=== PATIENT | male | born 1995 | race Caucasian/White ===

== ENCOUNTER 2020-07-25 16:03 | Emergency (ER) | payer OTHER, SELFPAY ==
--- NOTE | 2020-07-25 16:08 | ED.UPPEXIN ---
HPI - Extremity Injury (Upper) General Chief Complaint: Extremity Injury, Upper Stated Complaint: Extremity Injury, Upper Time Seen by Provider: 07/25/20 16:25 Source: patient and RN notes reviewed Mode of arrival: ambulatory Limitations: no limitations History of Present Illness HPI narrative: 24-year-old male presents with concern for laceration to the fifth digit of the left hand reports he was laying maria m when he cut his hand. He denies any blunt trauma. Denies any decreased sensation, range of motion to the finger MD complaint: injury to: left and finger Other Extremity Injury: Left: fingers Related Data Home Medications Medication Instructions Recorded Confirmed insulin lispro [Humalog U-100 1 sliding scale dose SUBCUT 07/25/20 07/25/20 Insulin] USEASDIRECTD Allergies Allergy/AdvReac Type Severity Reaction Status Date / Time No Known Allergies Allergy Verified 07/25/20 16:23 Review of Systems Review of Systems: Narrative: CONSTITUTIONAL: Denies malaise, chills, sweats, or fever. SKIN: Reports laceration to the fifth digit of left hand MUSCULOSKELETAL: Denies musculoskeletal pain NEUROLOGIC: Denies numbness, weakness. All systems reviewed & are unremarkable except as noted in HPI and below PMFSH Comments At time of signature, agree with nursing past medical, surgical, social and family history. There is no relevant family history pertinent to the presenting complaint Exam Narrative: Exam Narrative: GENERAL: Well-appearing, well-nourished, and in no acute distress. HEAD: Normocephalic EYES: PERRLA, conjunctivae clear NECK: Supple. CHEST: Speaks in full sentences. No respiratory distress. HEART: Regular rate and rhythm. Normal and equal peripheral pulses. EXTREMITIES: Left hand and digits of hand have normal strength and sensation. 5/5 strength with digit flexion, extension. Range of motion normal. No clubbing, cyanosis, or edema noted. No tenderness. Normal digital cascade with flexion of fingers, median, ulnar and radial nerve intact. Normal sensation of each side of finger. Can perform 'okay' sign, 'cross over finger test of index and middle fingers' and 'thumbs up' sign. No scissoring. Normal thumb opposition. Good capillary refill and radial pulse. Distal capillary refill less than 3 seconds. SKIN: Warn, dry, intact, pink. U-shaped skin flap laceration noted to the lateral edge of the fifth digit of the left hand, no current bleeding NEURO: Alert and oriented x3. PSYCH: Normal mood and affect Course Course Emergency Course: Patient is aware of diagnosis, understands and agrees to treatment plan. Anticipatory guidance given. Patient agrees to follow-up as directed and is aware of reasons to seek care at the emergency department. Portions of this record may have been created with voice recognition software Vital Signs Vital signs: Vital Signs Temperature 97.5 F L 07/25/20 16:18 Pulse Rate 81 07/25/20 16:18 Respiratory Rate 18 07/25/20 16:18 Blood Pressure 139/80 07/25/20 16:18 Pulse Oximetry 99 07/25/20 16:18 Temperature 97.5 F L 07/25/20 16:26 Pulse Rate 81 07/25/20 16:26 Respiratory Rate 18 07/25/20 16:26 Blood Pressure 139/80 07/25/20 16:26 Pulse Oximetry 99 07/25/20 16:26 Reviewed. Procedures Laceration Laceration 1: Date: 07/25/20 Time: 16:36 Site: hand Side (If applicable): left Size (cm): 2 Description: flap Depth: simple, single layer Amount of anesthesia used (mL): 2 Pre-repair: wound explored and irrigated ====== Skin Level ====== Skin layer closed with: nylon and steri strips Size (cm): 5-0 Number of sutures: 4 Technique: simple, interrupted ====== Subcutaneous Layer ====== ====== Muscle Layer ====== ====== Tendon Layer ====== MDM - Extremity Injury (Upper) MDM Narrative Medical decision making narrative: Wound explored for foreign
[2020-07-25 16:18] VITALS: BP 139/80; PULSE 81; RESP 18; TEMP 36.4; O2SAT 99
[2020-07-25 16:26] VITALS: BP 139/80; PULSE 81; RESP 18; TEMP 36.4; O2SAT 99
[2020-07-25] MEDS: TETANUS,DIPHTHERIA,AC PERTUSSIS ADULT (0.5 ML) BOOSTRIX IM (16:29)
== END 2020-07-25 17:16 | disposition home or self-care (01) ==
PROVIDERS: Emergency Provider Nurse Practitioner; PCP Nurse Practitioner Family
DX: S61.217A Laceration without foreign body of left little finger without damage to nail, initial encounter (principal); W45.8XXA Other foreign body or object entering through skin, initial encounter; Z23 Encounter for immunization; E11.9 Type 2 diabetes mellitus without complications; Z96.41 Presence of insulin pump (external) (internal); Z79.4 Long term (current) use of insulin
CPT/HCPCS: 12001; 90471; 90715; 99213; A4565; G0463

== ENCOUNTER 2021-06-01 09:51 | Emergency (ER) | payer OTHER, SELFPAY ==
[2021-06-01 11:17] VITALS: BP 98/73; PULSE 99; RESP 14; TEMP 37.3; O2SAT 97
--- NOTE | 2021-06-01 11:49 | ED.URI ---
HPI - URI/Sore Throat General Chief Complaint: Upper Respiratory Infection Stated Complaint: sore throat ear pain Time Seen by Provider: 06/01/21 11:34 Source: patient and RN notes reviewed Mode of arrival: ambulatory Limitations: no limitations History of Present Illness HPI Narrative: Patient presents today complaining of 6-day history of sore throat, cough, congestion, bilateral ear pain. He has been trying Mucinex and NyQuil without relief. Symptoms seem to be worsening since onset. MD elicited complaint: sore throat Related Data Home Medications Medication Instructions Recorded Confirmed insulin lispro [Humalog U-100 1 sliding scale dose SUBCUT 07/25/20 07/25/20 Insulin] USEASDIRECTD insulin glargine [Lantus U-100 SUBCUT 06/01/21 Insulin] Allergies Allergy/AdvReac Type Severity Reaction Status Date / Time No Known Allergies Allergy Verified 07/25/20 16:23 Review of Systems Review of Systems: CONSTITUTIONAL: Denies body aches, fever, chills, or sweats. EYES: Denies visual changes, redness, or discharge. ENT: Denies rhinorrhea,+ Congestion, sore throat, bilateral ear pain CARDIOVASCULAR: Denies chest pain, palpitations, or edema. RESPIRATORY: Denies dyspnea.+ Cough GASTROINTESTINAL: Denies abdominal pain, nausea, vomiting, or diarrhea. GENITOURINARY: Denies dysuria or hematuria. SKIN: Denies rash, itching, or wounds. MUSCULOSKELETAL: Denies back pain, joint pain, or myalgia. NEUROLOGIC: Denies headache, numbness, tingling, or weakness. PSYCH: Denies depression or anxiety. PMFSH Comments At time of signature, I have reviewed and agree with nursing past medical, surgical, social and family history unless otherwise noted. Please see nursing chart for further information. There is no relevant family history pertinent to the presenting complaint Exam Narrative: GENERAL: Well-appearing, well-nourished, and in no acute distress. HEAD: Normocephalic, atraumatic. EYES: EOMI. No redness or drainage. Conjunctivae normal. ENT: Mucous membranes pink and moist. Nares clear. No rhinorrhea. TMs normal bilaterally. Throat mildly erythematous without edema or exudate. Uvula midline. NECK: Normal AROM. Supple. No lymphadenopathy. CHEST: No respiratory distress. Clear to auscultation. HEART: Regular rate and rhythm. No murmur appreciated. Normal peripheral pulses. EXTREMITIES: Normal range of motion. No edema. SKIN: Warm, dry, no rash. Capillary refill normal. Normal skin turgor. NEURO: No focal deficits. Alert and oriented x3. Gait steady. PSYCH: Normal affect. No signs of depression or anxiety. Course Vital Signs Vital signs: Vital Signs Temperature 99.1 F 06/01/21 11:17 Pulse Rate 99 06/01/21 11:17 Respiratory Rate 14 06/01/21 11:17 Blood Pressure 98/73 L 06/01/21 11:17 Pulse Oximetry 97 06/01/21 11:17 Temperature 99.1 F 06/01/21 11:17 Pulse Rate 99 06/01/21 11:17 Respiratory Rate 14 06/01/21 11:17 Blood Pressure 98/73 L 06/01/21 11:17 Pulse Oximetry 97 06/01/21 11:17 Reviewed MDM - URI/Sore Throat Differential Diagnosis Differential diagnosis: Likely upper respiratory infection, otitis media, sinusitis, viral infection, influenza, pharyngitis and other (Strep throat, COVID-19) Lab Data Attestation: I reviewed the patient's lab results. Lab results narrative: Rapid COVID-19 negative Labs: Influenza A Screen Negative Reference Range: Negative Influenza B Screen Negative Reference Range: Negative Strep Screen Presumptive Negative *(Reference Range: Negative)* Critical Care Time Critical Care Time Critical Care Time: No Discharge Plan Discharge Clinical Impression: Strep throat Patient Disposition: Home, Self-Care Condition: Stable Instructions: Antibiotic Form, Strep T
== END 2021-06-01 12:09 | disposition home or self-care (01) ==
PROVIDERS: Emergency Provider Nurse Practitioner; PCP Nurse Practitioner Family
DX: J02.0 Streptococcal pharyngitis (principal); E11.9 Type 2 diabetes mellitus without complications; Z96.41 Presence of insulin pump (external) (internal)
CPT/HCPCS: 87804; 87880; 99213; G0463

== ENCOUNTER 2021-10-03 11:09 | Outpatient (CLI) | payer OTHER, SELFPAY ==
[2021-10-03 18:18] LABS: Hematocrit 50.1 % (42.0-52.0); Hemoglobin 17.7 g/dL (14.0-18.0); Mean Corpuscular HGB Conc 35.3 g/dl (32-36); Mean Corpuscular Hemoglobin 28.3 pg (26-34); Mean Corpuscular Volume 80.2 fl (80-100); Mean Platelet Volume 10.6 fl (7.4-10.4); Platelet Count Result 250 k/mm3 (150-375); Red Blood Count 6.25 M/mm3 (4.6-6.20); Red Cell Distribution Width 12.8 % (11.5-14.5); White Blood Count 7.6 K/mm3 (4.5-10.0)
[2021-10-03 18:39] LABS: Alanine Aminotransferase 36 U/L (4-50); Albumin Level 4.6 g/dL (3.5-5.1); Alkaline Phosphatase 98 U/L (38-126); Anion Gap 10 mmol/L (8-16); Aspartate Amino Transferase 34 U/L (17-59); Bilirubin,Total 4.6 mg/dL (0.2-1.3); Blood Urea Nitrogen 16 mg/dL (9-20); Calcium 9.5 mg/dL (8.4-10.2); Carbon Dioxide 30 mmol/L (22-30); Chloride 101 mmol/L (98-107); Cholesterol 173 mg/dL (0-200); Estimated Glomerular Filt Rate > 60; Glucose 142 mg/dL (65-110); HDL Direct 49 mg/dL; Potassium 4.3 mmol/L (3.4-5.0); Sodium 141 mmol/L (137-145); Triglycerides 69 mg/dL (<150)
[2021-10-03 18:49] LABS: LDL Cholesterol Direct 100 mg/dL
[2021-10-03 20:01] LABS: Hemoglobin A1C 9.3 % (<5.7)
== END 2021-10-03 11:10 | disposition home or self-care (01) ==
PROVIDERS: PCP Family Medicine; Visit Provider Family Medicine
DX: E10.9 Type 1 diabetes mellitus without complications (principal); R17 Unspecified jaundice; F41.9 Anxiety disorder, unspecified; Z00.00 Encounter for general adult medical examination without abnormal findings
CPT/HCPCS: 36415; 80053; 80061; 83036; 84443; 85027

== ENCOUNTER 2022-03-05 18:09 | Emergency (ER) | payer OTHER, SELFPAY ==
[2022-03-05] VITALS (7 sets, daily range): BP systolic 121–132; BP diastolic 75–90; PULSE 68–89; RESP 19–22; TEMP 36.8; O2SAT 99–100
--- NOTE | 2022-03-05 18:15 | ECG_ITS ---
Measurements Intervals [place] Rate: 72 P: 9 IA: 119 QRS: 64 QRSD: 98 T: -7 QT: 340 QTc: 373 Interpretive Statements SINUS RHYTHM WITH SINUS ARRHYTHMIA WITH SHORT IA INTERVAL NONSPECIFIC T-WAVE ABNORMALITY BORDERLINE ECG NO PREVIOUS ECG AVAILABLE FOR COMPARISON Electronically Signed On 03-05-2022 18:32:38 CDT by Andrew Syed M.D.
--- NOTE | 2022-03-05 18:26 | ED.GENADULT ---
HPI - General Adult General Chief complaint: Environmental Exposure Stated complaint: heat exhaustion Time Seen by Provider: 03/05/22 18:16 History of Present Illness HPI narrative: Pt is a 26 y/o male, PMHx of IDDM, presents to ED via EMS with CC he began feeling generally weak, dizzy, with hand and feet cramping, shortly [employer]AFF [employer] OFFICE BASED ONLY after working outdoors in the heat for several hours. He was drinking water and Mountain Dew and when he returned inside after completing his work, he began feeling unwell; as if his FSBS was dropping. He called for his spouse, who brought him glucose. Related Data Home Medications Medication Instructions Recorded Confirmed insulin lispro 100 unit/mL 1 sliding scale dose subcut 07/25/20 11/05/21 subcutaneous cartridge (Humalog USEASDIRECTD U-100 Insulin) insulin lispro 100 unit/mL subcut 03/05/22 subcutaneous pen Allergies Allergy/AdvReac Type Severity Reaction Status Date / Time No Known Allergies Allergy Unverified 03/05/22 18:08 Review of Systems Review of Systems: Refer to HPI Musculoskeletal: Comments: refer to HPI [facility] Family History Family History (Updated 10/03/21 @ 10:42 by Doreen Aaron MA) Mother Hypertension Grandparent Diabetes mellitus Hypertension Social History Social History (Updated 10/03/21 @ 10:41 by Doreen Aaron MA) Smoking status: Unknown if ever smoked Alcohol intake: never Substance use: never Substance use type: does not use Gender identity (if verbalized by the patient): Male Sexual Orientation (if Verbalized by the Patient): Straight or Heterosexual Agree to blood products: Yes Exam Const: General: cooperative, healthy appearing, comfortable, no acute distress, well developed and alert Orientation/consciousness: patient oriented x3 Limitations: no limitations HENMT: Head: normal to inspection and No palpable skull fracture present Ears: hearing grossly normal bilaterally, external ears normal and TM's normal bilaterally Face and sinus: normal facial exam Eyes: General: appearance normal, both eyes and all related structures Periorbital: periorbital findings normal Pupils: Equal, round and reactive pupils present Neck: Neck: normal visual inspection Carotids: normal carotid upstroke Chest: Chest palpation & inspection: normal inspection of the chest Resp: Effort & Inspection: normal respiratory effort and able to speak in complete sentences Auscultation: clear to auscultation bilaterally Cardio: Palpation: normal PMI Rate: regular rate Rhythm: regular rhythm Heart sounds: S1 normal heart sound present and S2 normal heart sound present Peripheral pulses: Peripheral pulses 2+ throughout GI: GI Palp: No abdominal tenderness, No Abdominal aortic bruit present, Yes Soft to palpation, No Firmness to palpation present (GI), No Tenderness to palpation present (GI), No Guarding due to palpation present (GI), No Rigid due to palpation, No No hepatosplenomegaly present, No Hepatosplenomegaly present, No Hepatomegaly present, No Splenomegaly present, No Hernia present, No Palpable mass present, No Pulsatile mass present, No Aortic enlargement present, No Ascites present, No Carnett's sign positive, No Rebound tenderness present, No Bladder palpation abnormal and No Other GI palpation findings present Back/Spine/Pelvis: Back: no CVA tenderness Skin: General skin exam: normal color Other: tanned skin, obvious sun exposure, no blistering or rashes noted Neuro: General: oriented to person, oriented to place, oriented to time and patient oriented x3 Cranial nerves: Yes CN's II-XII intact bilaterally and Yes Bilaterally intact EOM present Speech: normal speech Gait exam (Neuro): Normal gait present Motor exam (neuro): 5/5 motor strength present throughout Extrem: General: normal to inspection, full ROM and capillary refill normal Other: pt has no TTP over any muscle groups of the upper, lower extremities or back. P
[2022-03-05 18:32] LABS: Basophils Absolute Auto 0.1 K/mm3 (0.0-0.1); Basophils Percent Auto 0.7 % (0.2-1.2); Eosinophils Absolute Auto 0.1 K/mm3 (0-0.3); Eosinophils Percent Auto 0.6 % (0-4.4); Hematocrit 49.5 % (42.0-52.0); Hemoglobin 17.8 g/dL (14.0-18.0); Immature Granulocyte Absolute 0.08 K/mm3 (0.00-0.031); Immature Granulocyte Percent A 0.9 % (0-0.5); Lymphocytes Absolute Auto 2.94 K/mm3 (0.9-3.2); Lymphocytes Percent Auto 32.9 % (18.3-44.2); Mean Corpuscular Hemoglobin 27.8 pg (26-34); Mean Corpuscular Volume 77.3 fl (80-100); Mean Platelet Volume 9.9 fl (7.4-10.4); Monocytes Absolute Auto 0.7 K/mm3 (0.1-0.6); Monocytes Percent Auto 7.3 % (2.6-8.5); Neutrophils Absolute Auto 5.2 K/mm3 (1.3-6.7); Neutrophils Percent Auto 57.6 % (45.5-73.1); Platelet Count Result 271 k/mm3 (150-375); Red Cell Distribution Width 12.7 % (11.5-14.5); White Blood Count 8.9 K/mm3 (4.5-10.0)
[2022-03-05] MEDS: LACTATED RINGERS 1,000 ML 999 ML IV CONT (18:32)
[2022-03-05 18:42] LABS: Alanine Aminotransferase 43 U/L (6-50); Albumin Level 5.4 g/dL (3.5-5.1); Alkaline Phosphatase 102 U/L (38-126); Anion Gap 12 mmol/L (8-16); Aspartate Amino Transferase 40 U/L (17-59); Bilirubin,Total 4.5 mg/dL (0.2-1.3); Blood Urea Nitrogen 18 mg/dL (9-20); Calcium 10.2 mg/dL (8.4-10.2); Carbon Dioxide 32 mmol/L (22-30); Chloride 94 mmol/L (98-107); Estimated CRCL calculation 61 ml/min; Estimated Glomerular Filt Rate > 60; Glucose 208 mg/dL (65-110); Potassium 3.7 mmol/L (3.4-5.0); Sodium 138 mmol/L (137-145)
--- NOTE | 2022-03-05 19:58 | PC.NURSE ---
Called lab to add on Ck, Ckmb, trop 1, and tsh reflex.
[2022-03-05 20:15] LABS: Creatine Kinase 193 U/L (55-170)
[2022-03-05 20:29] LABS: Creatine Kinase MB 3.5 ng/mL (0.0-2.37); Troponin I < 0.012 ng/mL (0.000-0.034)
[2022-03-05] MEDS: SODIUM CHLORIDE 0.9% IV 1,000 ML 999 ML IV CONT (20:30)
--- NOTE | 2022-03-05 20:43 | PC.NURSE ---
Initial L of NS started by EMS in route infused w/ 0 volume left in container. Pt has had full NS liter and full L of LR. Benji Christina NP made aware and doc in SEP.
[2022-03-05 21:38] LABS: Free T4 Free Thyroxine Reflex 1.17 ng/dL (0.78-2.19)
== END 2022-03-05 21:26 | disposition home or self-care (01) ==
PROVIDERS: Emergency Medicine; Emergency Provider Nurse Practitioner Family; PCP Family Medicine
DX: E86.0 Dehydration (principal); E11.9 Type 2 diabetes mellitus without complications; Z79.4 Long term (current) use of insulin; X30.XXXA Exposure to excessive natural heat, initial encounter
CPT/HCPCS: 36415; 80053; 82550; 82553; 84439; 84443; 84480; 84484; 85025; 93005; 96360; 96361; 99284; J7030; J7120

== ENCOUNTER 2023-04-19 15:15 | Emergency (ER) | payer OTHER, SELFPAY ==
[2023-04-19 15:31] VITALS: BP 143/67; PULSE 73; RESP 18; TEMP 36.6; O2SAT 98
--- NOTE | 2023-04-19 16:00 | ED.GENADULT ---
HPI - General Adult General Chief complaint: Unspecified Stated complaint: insulin prescription Source: patient Mode of arrival: ambulatory Limitations: no limitations History of Present Illness HPI narrative: Patient presents requesting a refill on his Humalog. He has an insulin pump for diabetes and dropped his last vial earlier today. He still has Humalog remaining in the pump but was concerned he would run out of insulin before the end of the weekend. His primary care provider does not have a method of contact over the weekend. His home BS have been running 70-120. Prescription is for 10ml vial with max dose of 45 units per day. Related Data Home Medications Medication Instructions Recorded Confirmed insulin lispro 100 unit/mL 1 sliding scale dose subcut 07/25/20 04/19/23 subcutaneous cartridge (Humalog USEASDIRECTD U-100 Insulin) Allergies Allergy/AdvReac Type Severity Reaction Status Date / Time No Known Allergies Allergy Verified 04/16/23 14:12 Review of Systems Review of Systems: CONSTITUTIONAL: Denies fever, chills, or sweats. EYES: Denies visual changes, redness, or discharge. ENT: Denies rhinorrhea, congestion, sore throat, or otalgia. CARDIOVASCULAR: Denies chest pain, palpitations, or edema. RESPIRATORY: Denies cough or dyspnea. GASTROINTESTINAL: Denies abdominal pain, nausea, vomiting, or diarrhea. GENITOURINARY: Denies dysuria or hematuria. SKIN: Denies rash or itching. MUSCULOSKELETAL: Denies back pain, joint pain, or myalgia. NEUROLOGIC: Denies headache, numbness, dizziness, or weakness. PSYCHIATRIC: Denies anxiety or depression. [facility] Past Medical History Medical History Diabetes Surgical History Surgical History No pertinent past surgical history Family History Family History Mother Hypertension Grandparent Diabetes mellitus Hypertension Social History Social History Smoking status: Never smoker Alcohol intake: never Substance use: never Substance use type: does not use Living arrangements: with family Gender identity (if verbalized by the patient): Male Sexual Orientation (if Verbalized by the Patient): Straight or Heterosexual Agree to blood products: Yes Exam Narrative: GENERAL: Well-appearing, well-nourished, and in no acute distress. HEAD: Normocephalic, atraumatic. EYES: PERRLA and EOMI. ENT: Nares clear, no rhinorrhea or epistaxis. Mucous membranes moist. Oropharynx without tonsillar hypertrophy exudate or other lesions. Bilateral TMs pearly jerez nonbulging NECK: Supple. No adenopathy or masses. No carotid bruits or JVD CHEST: Clear to auscultation. No respiratory distress. No wheezes rales or rhonchi HEART: Regular rate and rhythm. No murmur heard. Normal peripheral pulses. ABDOMEN: Soft, nontender, nondistended, normal active bowel sounds. EXTREMITIES: Normal range of motion. No edema. SKIN: Warm, dry, no rash. NEURO: No focal deficits. Alert and oriented x3. PSYCH: Normal mood and affect. Course Course Emergency Course: This is a 27-year-old male who presented requesting a refill on his Humalog for his insulin pump. Provided me with a box to show number of units per ml and total mil per vial. I contacted his filling pharmacy to ensure they have that particular product. Pharmacist to verify at time of customer pickup. Recommended continue to follow blood sugars closely. Follow up with primary next week. Go to the ER for hyperglycemia. Pt in agreement with plan of care. Level of Care: Express Care Visit Vital Signs Vital signs: Vital Signs Temperature 36.6 C 04/19/23 15:31 Pulse Rate 73 04/19/23 15:31 Respiratory Rate 18 04/19/23 15:31 Blood Pressure 143/67 H 04/19/23
== END 2023-04-19 15:57 | disposition home or self-care (01) ==
PROVIDERS: Emergency Provider Nurse Practitioner; PCP Family Medicine
DX: E11.8 Type 2 diabetes mellitus with unspecified complications (principal); Z79.4 Long term (current) use of insulin
CPT/HCPCS: 99211; G0463

== ENCOUNTER 2023-04-21 08:11 | Outpatient (CLI) | payer OTHER, SELFPAY ==
[2023-04-21 09:43] LABS: Alanine Aminotransferase 37 U/L (6-50); Albumin Level 4.2 g/dL (3.5-5.1); Alkaline Phosphatase 81 U/L (38-126); Anion Gap 4 mmol/L (8-16); Aspartate Amino Transferase 29 U/L (17-59); Bilirubin,Total 3.2 mg/dL (0.2-1.3); Blood Urea Nitrogen 17 mg/dL (9-20); Calcium 8.9 mg/dL (8.4-10.2); Carbon Dioxide 31 mmol/L (22-30); Chloride 102 mmol/L (98-107); Cholesterol 200 mg/dL (0-200); Estimated Glomerular Filt Rate > 60; Glucose 171 mg/dL (65-110); HDL Direct 40 mg/dL; Potassium 4.1 mmol/L (3.4-5.0); Sodium 137 mmol/L (137-145); Triglycerides 79 mg/dL (<150)
[2023-04-21 09:54] LABS: LDL Cholesterol Direct 124 mg/dL
[2023-04-21 10:12] LABS: Free T4 Free Thyroxine 0.96 ng/mL (0.78-2.19)
== END 2023-04-21 08:12 | disposition home or self-care (01) ==
LOC: ANHLAB 08:12
PROVIDERS: PCP Family Medicine; Visit Provider Internal Medicine
DX: E10.9 Type 1 diabetes mellitus without complications (principal)
CPT/HCPCS: 36415; 80053; 80061; 82043; 84439; 84443

== ENCOUNTER 2023-04-21 14:43 | Outpatient (CLI) | payer OTHER, SELFPAY ==
[2023-04-21 20:43] LABS: Creatinine Urine 19.3 mg/dL
[2023-04-21 20:52] LABS: Microalbumin Urine Random < 6.0 mg/L (0-16.7)
== END 2023-04-21 14:44 | disposition home or self-care (01) ==
LOC: ANHBWCLAB 14:45
PROVIDERS: PCP Family Medicine; Visit Provider Internal Medicine
DX: Z04.89 Encounter for examination and observation for other specified reasons (principal)
CPT/HCPCS: 82043

== ENCOUNTER 2023-09-16 13:18 | Outpatient (CLI) | payer OTHER, SELFPAY ==
--- NOTE | ~2023-09-16 | XR_ITS ---
EXAMINATION: XR chest 2V Exam Date/Time: 09/16/2023 13:19 PACKAGING LINE ATTENDANT HISTORY: R05.3 - Chronic cough Comparison: None. RESULT: Lines, tubes, and devices: None. Lungs and pleura: Mild diffuse reticular opacities and cuffing. Cardiomediastinal silhouette: Normal. Other: No acute osseous or upper abdominal finding. IMPRESSION: Pulmonary opacities may represent bronchiolitis, as can be seen with atypical infection, asthma, aspi ration, and small airways disease. Reviewed, dictated and finalized at location [facility]. AGING LINE ATTENDANT IMPRESSION: Pulmonary opacities may represent bronchiolitis, as can be seen with atypical i nfection, asthma, aspiration, and small airways disease.
== END 2023-09-16 13:19 | disposition home or self-care (01) ==
LOC: ANHBWCIMG 13:19
PROVIDERS: PCP Nurse Practitioner Adult Health; Visit Provider Nurse Practitioner Adult Health
DX: R91.8 Other nonspecific abnormal finding of lung field (principal); R05.3 Chronic cough
CPT/HCPCS: 71046

== ENCOUNTER 2023-09-19 13:52 | Outpatient (CLI) | payer OTHER, SELFPAY ==
--- NOTE | ~2023-09-19 | CT_ITS ---
CT Scan of the Chest without Contrast: Clinical Indication: Chronic cough Technique: Contiguous sections were acquired throughout the chest without intravenous contrast. Dose reduction technique was used on this scan by utilizing automated exposure control and iterative recon struction technique. The dose-length product (DLP) was 188.09 mGy-cm. Findings: There is no evidence of any significant mediastinal, hilar or axillary lymphadenopathy. The mediastin al soft tissues appear normal. There is no evidence of pleural or pericardial effusion. The lungs are clear. No pulmonary nodules or infiltrates are noted. Images through the upper abdomen reveal no abnormalities. Impression: No significant abnormalities seen. Reviewed, dictated and finalized at [facility]. IO CLINICIAN Impression: No significant abnormalities seen.
== END 2023-09-19 13:53 | disposition home or self-care (01) ==
LOC: ANHIMG 13:52
PROVIDERS: PCP Nurse Practitioner Adult Health; Visit Provider Nurse Practitioner Adult Health
DX: R93.89 Abnormal findings on diagnostic imaging of other specified body structures (principal); R05.3 Chronic cough; Z86.16 Personal history of COVID-19
CPT/HCPCS: 71250

== ENCOUNTER 2023-09-29 14:22 | Outpatient (CLI) | payer OTHER, SELFPAY ==
--- NOTE | 2023-09-29 17:19 | WPDPFTINT ---
PFT Procedure Performed PFT Procedure Performed Plethysmography (Lung Vol) Diffusing Cap (DLCO) Flow Vol Loop Spirometry w/o Bronchodil PFT Interpretation This is a pulmonary function test with spirometry, plethysmography and diffusing capacity. The test was performed and results interpreted in accordance with the 2019 and 2005 ATS/ERS Task Force guidelines respectively using the Global Lung Function Initiative-2012 reference equations. Patient demonstrated good effort and cooperation. Reproducibility criteria were met. The quality of the spirometry maneuver was Grade A. Findings: Spirometry: There is mid expiratory plateau referred to as a knee pattern in 2 of the 4 maneuvers. The contour the inspiratory flow tracing is truncated. The FVC is 2.72 L, 64% predicted. The FEV1 is 2.43 L, 68% predicted. FEV1: FVC ratio is 89%. Plethysmography: The total lung capacity is 3.49 L, 64% predicted. The functional residual capacity is 1.33 L, 53% predicted. The residual volume is 0.76 L, 63% predicted. Diffusing capacity: The diffusing capacity unadjusted for the hemoglobin and carboxyhemoglobin is 18.4, 56% predicted. The diffusing capacity adjusted for alveolar volume is 5.01, 90% predicted. Impression: There is a reproducible knee pattern in the expiratory flow tracing which can be a normal variant or pathologic and has been attributed to a choke point section of the bronchial tree. The normal variant is more common in younger female patients, decreases with age and is more pronounced in the post bronchodilator efforts. The pattern has also been described with kyphosis, kyphoscoliosis, central obstructing mass, and post lung transplantation. Clinical correlation is recommended. Otherwise, there is a moderate restrictive ventilatory abnormality. The spirometry is normal without evidence of an obstructive abnormality. The diffusing capacity unadjusted for hemoglobin and carboxyhemoglobin is moderately decreased and normalizes when adjusted for alveolar volume. There are no prior studies for comparison
== END 2023-09-29 14:23 | disposition home or self-care (01) ==
PROVIDERS: PCP Nurse Practitioner Adult Health; Visit Provider Nurse Practitioner Adult Health
DX: R93.89 Abnormal findings on diagnostic imaging of other specified body structures (principal); R05.3 Chronic cough; Z86.16 Personal history of COVID-19
CPT/HCPCS: 94375; 94726; 94729

== ENCOUNTER 2023-12-17 09:58 | Outpatient (CLI) | payer OTHER, SELFPAY ==
[2023-12-17 10:38] LABS: Basophils Percent Auto 0.4 % (0.2-1.2); Eosinophils Absolute Auto 0.1 K/mm3 (0-0.3); Eosinophils Percent Auto 0.7 % (0-4.4); Hematocrit 46.2 % (42.0-52.0); Hemoglobin 16.4 g/dL (14.0-18.0); Immature Granulocyte Absolute 0.07 K/mm3 (0.00-0.031); Lymphocytes Absolute Auto 1.74 K/mm3 (0.9-3.2); Lymphocytes Percent Auto 25.3 % (18.3-44.2); Mean Corpuscular HGB Conc 35.5 g/dl (32-36); Mean Corpuscular Hemoglobin 28.2 pg (26-34); Mean Corpuscular Volume 79.4 fl (80-100); Mean Platelet Volume 10.2 fl (7.4-10.4); Monocytes Absolute Auto 0.5 K/mm3 (0.1-0.6); Monocytes Percent Auto 7.8 % (2.6-8.5); Neutrophils Absolute Auto 4.5 K/mm3 (1.3-6.7); Neutrophils Percent Auto 64.8 % (45.5-73.1); Platelet Count Result 203 k/mm3 (150-375); Red Blood Count 5.82 M/mm3 (4.6-6.20); Red Cell Distribution Width 12.8 % (11.5-14.5); White Blood Count 6.9 K/mm3 (4.5-10.0)
== END 2023-12-17 09:59 | disposition home or self-care (01) ==
LOC: ANHLAB 09:59
PROVIDERS: PCP Nurse Practitioner Adult Health; Visit Provider Internal Medicine Pulmonary Disease
DX: J44.9 Chronic obstructive pulmonary disease, unspecified (principal)
CPT/HCPCS: 36415; 85025

== ENCOUNTER 2023-12-30 14:24 | Outpatient (CLI) | payer OTHER, SELFPAY ==
--- NOTE | 2023-12-31 12:56 | WPDPFTINT ---
PFT Procedure Performed PFT Procedure Performed Spirometry with Pre/Post Bronchodilator Plethysmography (Lung Vol) Diffusing Cap (DLCO) Flow Vol Loop PFT Interpretation Lung volumes were measured with the body plethysmography method. Lung volumes are unremarkable. Spirometry showed normal expiratory flow rates and a normal FEV1 to FVC ratio of 91%. Following administration of a bronchodilator there was no significant increase in expiratory flow rates. Lung diffusion capacity is mildly reduced at 59% predicted. In comparison to previous study in September of 2023 there has been no significant change in spirometric, lung volume or lung diffusion capacity measurements. Impression: Spirometry, lung volumes within the normal range. Mild reduction in lung diffusion capacity.
== END 2023-12-30 14:25 | disposition home or self-care (01) ==
LOC: ANHPFT 14:24
PROVIDERS: PCP Nurse Practitioner Adult Health; Visit Provider Internal Medicine Pulmonary Disease
DX: R05.3 Chronic cough (principal)
CPT/HCPCS: 94060; 94726; 94729

== ENCOUNTER 2024-02-16 08:42 | Emergency (ER) | payer OTHER, SELFPAY ==
[2024-02-16] VITALS (10 sets, daily range): BP systolic 113–162; BP diastolic 78–95; PULSE 80–101; RESP 15–23; TEMP 37.1; O2SAT 95–99
--- NOTE | ~2024-02-16 | XR_ITS ---
XR chest 1V portable Ordering provider: Charles Payne MD History: 28 years Male with . SOB, DIZZINESS, TRANSIENT ALTERATION OF AWARENESS . Comparison: September 16, 2023 FINDINGS: MEDIASTINUM: The cardiac silhouette is slightly enlarged. LUNGS: No infiltrates, effusions or pneumothorax. OTHER: No free air under the diaphragm. IMPRESSION: No acute cardiopulmonary pathology. Reviewed, dictated and finalized at location A.
[2024-02-16 08:55] LABS: Glucose Point of Care 314 mg/dl (65-105)
--- NOTE | 2024-02-16 09:11 | ED.GENADULT ---
HPI - General Adult General Chief complaint: Weakness Stated complaint: sob Time Seen by Provider: 02/16/24 08:49 History of Present Illness HPI narrative: 28-year-old male presenting to the emergency department for evaluation for increased shortness of breath and feeling confused. Patient states he does have a longstanding history of chronic cough and tracheomegaly for which he is following up with physician at [place]. Patient states that this morning when he woke up he did feel disoriented. At rest patient states he has no shortness breath but does have exertional shortness of breath. Related Data Allergies Allergy/AdvReac Type Severity Reaction Status Date / Time No Known Allergies Allergy Verified 02/16/24 08:57 Review of Systems Review of Systems: All systems reviewed & are unremarkable except as noted in HPI and below PMFSH Past Medical History Medical History Diabetes Surgical History Surgical History No pertinent past surgical history Family History Family History Mother Hypertension Grandparent Diabetes mellitus Hypertension Social History Social History Smoking status: Never smoker Alcohol intake: never Substance use: never Substance use type: does not use Lack of Transportation: No Lack of Food: Never True Current Housing: I Have Housing Concerned About Future Housing: No Difficulty Paying Gas/Electric Bills: No Difficulty Paying for Meds: No Currently Unemployed: No Education: High School Diploma/GED Difficulty w/ Childcare or Family Care: No Living arrangements: with family Gender identity (if verbalized by the patient): Male Sexual Orientation (if Verbalized by the Patient): Straight or Heterosexual Agree to blood products: Yes Exam Narrative: APPEARANCE: Well appearing, no pain, no distress, well-nourished. HEAD: normocephalic, atraumatic. EYES: PERRLA/EOMI, conjunctivae clear. NOSE: Normal no drainage EARS:TMS clear with good light reflex. THROAT: Pharynx clear, no exudate. NECK: Supple. No adenopathy, no masses. No stridor RESPIRATORY: Rhonchi bilaterally CARDIOVASCULAR: Regular rate and rhythm without murmurs rubs or gallops. ABDOMINAL: Soft, nontender, nondistended, normal bowel sounds MUSCULOSKELETAL: Moves all extremities. Strength/ROM intact, No edema, No calf tenderness. NEURO: Alert. Cranial nerves II through XII intact. Good gait. Good coordination SKIN: Warm, dry. Normal Color Course Course Emergency Course: Patient was diagnosed with COVID and discharged to home Vital Signs Vital signs: Vital Signs Temperature 98.7 F 02/16/24 08:48 Pulse Rate 84 02/16/24 08:48 Respiratory Rate 21 H 02/16/24 08:48 Blood Pressure 162/95 H 02/16/24 08:48 Pulse Oximetry 98 02/16/24 08:48 Oxygen Delivery Room Air 02/16/24 08:48 Temperature 98.7 F 02/16/24 08:48 Pulse Rate 98 02/16/24 11:01 Respiratory Rate 15 02/16/24 11:01 Blood Pressure 113/87 02/16/24 11:01 Pulse Oximetry 98 02/16/24 11:01 Oxygen Delivery Room Air 02/16/24 10:28 Medical Decision Making [facility] Narrative Medical decision making narrative: 28-year-old male presenting to the emergency department for evaluation for cough congestion and feeling ill since Friday morning. Patient felt symptoms were worsened today. Patient is afebrile with no leukocytosis and a stable hemoglobin of 15.8. Patient had elevated blood sugar. No elevated anion gap. Patient was negative for influenza RSV was positive for COVID. Chest x-ray shows no acute abnormality. Patient did feel improved after the breathing treatment. Patient does have history of chronic cough does follow-up with pulmonology and does have Tessalon at home. Patient will be aguila
[2024-02-16] MEDS: ALBUTEROL SULFATE NEB 2.5 MG/3 ML INH INHALATION (09:35)
[2024-02-16 09:51] LABS: Basophils Percent Auto 0.3 % (0.2-1.2); Eosinophils Percent Auto 0.4 % (0-4.4); Hematocrit 43.8 % (42.0-52.0); Hemoglobin 15.8 g/dL (14.0-18.0); Immature Granulocyte Absolute 0.06 K/mm3 (0.00-0.031); Immature Granulocyte Percent A 0.6 % (0-0.5); Lymphocytes Absolute Auto 1.67 K/mm3 (0.9-3.2); Lymphocytes Percent Auto 17.2 % (18.3-44.2); Mean Corpuscular HGB Conc 36.1 g/dl (32-36); Mean Corpuscular Hemoglobin 28.2 pg (26-34); Mean Corpuscular Volume 78.2 fl (80-100); Mean Platelet Volume 10.1 fl (7.4-10.4); Monocytes Absolute Auto 0.9 K/mm3 (0.1-0.6); Monocytes Percent Auto 9.1 % (2.6-8.5); Neutrophils Percent Auto 72.4 % (45.5-73.1); Platelet Count Result 187 k/mm3 (150-375); Red Cell Distribution Width 12.6 % (11.5-14.5); White Blood Count 9.7 K/mm3 (4.5-10.0)
[2024-02-16 10:00] LABS: Alanine Aminotransferase 47 U/L (6-50); Albumin Level 4.3 g/dL (3.5-5.1); Alkaline Phosphatase 98 U/L (38-126); Anion Gap 9 mmol/L (4-12); Aspartate Amino Transferase 28 U/L (17-59); Bilirubin,Total 2.2 mg/dL (0.2-1.3); Blood Urea Nitrogen 14 mg/dL (9-20); Calcium 8.9 mg/dL (8.4-10.2); Carbon Dioxide 28 mmol/L (22-30); Chloride 97 mmol/L (98-107); Estimated CRCL calculation 89 ml/min; Estimated Glomerular Filt Rate > 60; Glucose 273 mg/dL (65-110); Potassium 4.1 mmol/L (3.4-5.0); Sodium 134 mmol/L (137-145)
[2024-02-16 10:27] LABS: Influenza A QL RT-PCR Negative (Negative); Influenza B QL RT-PCR Negative (Negative); RSV RNA, RT-PCR Negative (Negative); SARS-CoV-2 RNA PCR Positive (Negative)
== END 2024-02-16 11:20 | disposition home or self-care (01) ==
PROVIDERS: Emergency Provider Emergency Medicine; PCP Nurse Practitioner Adult Health
DX: U07.1 COVID-19 (principal); E11.9 Type 2 diabetes mellitus without complications
CPT/HCPCS: 36415; 71045; 80053; 82948; 85025; 87637; 94640; 99284

== ENCOUNTER 2024-07-24 09:38 | Emergency (ER) | payer OTHER, SELFPAY ==
--- NOTE | ~2024-07-24 | XR_ITS ---
XR ankle RT min 3V DATE: 07/24/2024 10:18 INDICATION: Twisted ankle. Lateral pain. TECHNIQUE: 4 views COMPARISON: None FINDINGS: No fracture or dislocation of the ankle or disruption of the ankle mortise. No periosteal r eaction or bone destruction. Anterior and posterior tibial and dorsalis pedis artery calcifications. IMPRESSION: Anterior and posterior tibial and dorsalis pedis artery calcifications in 28-year-old pat ient; recommend clinical correlation for diabetes No significant bony abnormality Reviewed, dictated and finalized at location A. INSPECTOR IMPRESSION: Anterior and posterior tibial and dorsalis pedis artery calcificati ons in 28-year-old patient; recommend clinical correlation for diabetes No significant bony abnormality
[2024-07-24 09:55] VITALS: BP 147/74; PULSE 73; RESP 16; TEMP 36.3; O2SAT 100
--- NOTE | 2024-07-24 09:58 | ED.LOWEXIN ---
HPI - Extremity Injury (Lower) General Chief Complaint: Extremity Injury, Lower Stated Complaint: Right Ankle Injury Time Seen by Provider: 07/24/24 09:58 Source: patient, RN notes reviewed and old records reviewed Mode of arrival: ambulatory Limitations: no limitations History of Present Illness HPI Narrative: 28 year old male presents to [facility] care with complaints of twisting his right ankle this morning at around 0745.Patient reports that he got out of his truck to go into shop and foot hit ledge at shop entrance and he twisted his ankle outward. Patient reports that pain is to his lateral ankle region with no obvious deformity present. Patient reports that he has not taken any OTC medication for his discomfort or applied any ice to his lateral ankle. Patient reports no tingling or numbness to his right foot, pedal pulse is palpable. Patient is juvenile Type I diabetic. MD complaint: ankle injury Onset (ago): hour(s) (this morning at around 0745) Injury: Right: ankle (twisted outward) Place: work Severity scale (1-10): 4 Exacerbating factors: weight bearing Associated symptoms: swelling and other (pain) Treatments prior to arrival: other (none) Related Data Home Medications ?Medication ?Instructions ?Recorded ?Confirmed ?Last Taken ?Type insulin lispro 100 unit/mL 07/24/24 Unknown History subcutaneous cartridge (Humalog U-100 Insulin) Allergies Allergy/AdvReac Type Severity Reaction Status Date / Time No Known Allergies Allergy Verified 02/16/24 08:57 Review of Systems Review of Systems: CONSTITUTIONAL: Denies fever, chills, or sweats. EYES: Denies visual changes, redness, or discharge. ENT: Denies rhinorrhea, congestion, sore throat, or otalgia. CARDIOVASCULAR: Denies chest pain, palpitations, or edema. RESPIRATORY: Denies cough or dyspnea. GASTROINTESTINAL: Denies abdominal pain, nausea, vomiting, or diarrhea. GENITOURINARY: Denies dysuria or hematuria. SKIN: Denies rash or itching. MUSCULOSKELETAL: Denies back pain, patient reports pain and swelling to the lateral aspect of right ankle, or myalgia. NEUROLOGIC: Denies headache, numbness, or weakness. PSYCHIATRIC: Denies anxiety or depression. All systems reviewed & are unremarkable except as noted in HPI and below PMFSH Past Medical History Medical History Hypertension Anxiety and depression Hyperlipidemia Diabetes Type I juvenile diabetic Surgical History Surgical History No pertinent past surgical history Family History Family History Mother Hypertension Grandparent Diabetes mellitus Hypertension Social History Social History Smoking status: Never smoker Alcohol intake: never Substance use: never Substance use type: does not use Lack of Transportation: No Lack of Food: Never True Current Housing: I Have Housing Concerned About Future Housing: No Difficulty Paying Gas/Electric Bills: No Difficulty Paying for Meds: No Currently Unemployed: No Education: High School Diploma/GED Difficulty w/ Childcare or Family Care: No Living arrangements: with family Gender identity (if verbalized by the patient): Male Sexual Orientation (if Verbalized by the Patient): Straight or Heterosexual Agree to blood products: Yes Comments At time of signature, agree with nursing past medical, surgical, social and family history. There is no relevant family history pertinent to the presenting complaint Exam Narrative: GENERAL: Well-appearing, well-nourished, and in no acute distress. HEAD: Normocephalic, atraumatic. EYES: PERRLA and EOMI. ENT: Nares clear, no rhinorrhea or epistaxis. Mucous membranes moist.TM's normal, throat pink with no swelling NECK: Supple.no lymphadenopathy CHEST: Clear to auscultation. No respiratory distress.SAO2 100% on room air HEART: Regular rate and rhythm. No murmur heard. Normal peripheral pulses. ABDOMEN: Soft, nontender, nondistended, normal active bowel sounds. EXTREMITIES: Normal range of motion. No acute edema. Reports twisted his right ankle this morning when he stepped out of truck and walked on side walk to entrance of shop and hit ledge then twisting foot outward with swelling noted to lateral aspect of his right ankle and is painful especially to ambulation, pedal pulse palpable, foot pink, denies any tingling or numbness to his right foot. SKIN: Warm, dry, no rash. NEURO: No focal deficits. Alert and oriented x3. Course Course Emergency Course: Patient is aware of diagnosis, understands and agrees to treatment plan.? Anticipatory guidance given.? Patient agrees to follow-up as directed and is aware of reasons to seek care at the emergency department. Portions of this record may have been created with voice recognition software Level of Care: Express Care Visit Vital Signs Vital signs: Vital Signs Temperature 36.3 C L 07/24/24 09:55 Pulse Rate 73 07/24/24 09:55 Respiratory Rate 16 07/24/24 09:55 Blood Pressure 147/74 H 07/24/24 09:55 Pulse Oximetry 100 07/24/24 09:55 Oxygen Delivery Room Air 07/24/24 09:55 Temperature 36.3 C L 07/24/24 09:55 Pulse Rate 73 07/24/24 09:55 Respiratory Rate 16 07/24/24 09:55 Blood Pressure 147/74 H 07/24/24 09:55 Pulse Oximetry 100 07/24/24 09:55 Oxygen Delivery Room Air 07/24/24 09:55 Reviewed MDM - Extremity Injury (Lower) Differential Diagnosis Differential diagnosis: Likely ankle sprain and strain, ankle fracture and other (swelling right ankle, pain right ankle.) Medical Records Attestation: I reviewed the patient's medical records. Imaging Data Attestation: I personally reviewed and interpreted this imaging study as follows: My impression: no significant bony abnormality Patient has some noted tibial and dorsalis pedis artery calcifications Radiologist's impression: Express [place] [id number] [id number] XRay Report Signed Patient: Cory Mandel : 1995 MR#: [id number] Age: 28 Acct:[id number] Loc: [facility] ADM Date: 07/24/24Attending Dr: Ordering Physician: Jimena Guadalupe APRN Date of Service: 07/24/24 Procedure(s): XR ankle RT min 3V Accession Number(s): [id number] cc: Mathew Gibbons MD; Jimena Guadalupe APRN~ XR ankle RT min 3V DATE: 07/24/2024 10:18 INDICATION: Twisted ankle. Lateral pain. TECHNIQUE: 4 views COMPARISON: None FINDINGS: No fracture or dislocation of the ankle or disruption of the ankle mortise. No periosteal reaction or bone destruction. Anterior and posterior tibial and dorsalis pedis artery calcifications. IMPRESSION: Anterior and posterior tibial and dorsalis pedis artery calcifications in 28-year-old patient; recommend clinical correlation for diabetes No significant bony abnormality Reviewed, dictated and finalized at location A. BER LIGHT Please be advised this is a medical document. It is intended for [id number]-[id number] communication. It is written in medical language and may contain unfamiliar abbreviations or verbiage. Medical documents are intended to carry relevant information, facts as evident, and the clinical opinion of the practitioner at the time of the encounter. This report may have been done utilizing a voice recognition system. Attempts have been made to correct errors. However, there may be uncorrected grammatical, spelling, and recognition errors present. The file time of this note does not necessarily represent the time the patient was seen. Dictated By: Dustin Gibbons MD 07/24/24 1027 Signed By: <Electronically signed by Dustin Gibbons MD in OV> Critical Care Time Critical Care Time Critical Care Time: No Discharge Plan Discharge Clinical Impression: Sprain and strain of right ankle Patient Disposition: Home, Self-Care Condition: Stable Instructions: Antibiotic Form, Ankle Sprain (DC) Additional Instructions: Elastic wrap or orthopedic splint as directed for comfort for the next 5-7 days Tylenol for lesser pain Ibuprofen regularly for the next 2-3 days for the inflammation Follow-up with orthopedic surgeon if any further problems or concerns Follow-up with PCP if further problems or concerns Ice to the area 20-30 minutes 4-6 times a day Elevate above heart If your symptoms persist, change or worsen significantly before you can contact your personal physician then please, without delay, go to the emergency department for further evaluation. Follow-up with PCP in 7-10 days or sooner if needed Follow up with PCP soon in regards to your blood pressure which is elevated above threshold for referral. Blood pressure above 120/80 may indicate pre-hypertension. 147/ 74 Patient Language: Solomon Islander Prescriptions: No Action Humalog U-100 Insulin 100 unit/mL cartridge albuterol sulfate 90 mcg/actuation HFA aerosol inhaler 1 inh inhalation QID PRN (Reason: shortness of breath or wheezing) Qty: 6.7 0RF albuterol sulfate [Ventolin HFA] 90 mcg/actuation HFA aerosol inhaler 2 inh inhalation Q4H PRN (Reason: shortness of breath or wheezing) Qty: 8.5 1RF atorvastatin 20 mg tablet See Rx Instructions .ROUTE .COMPLEX Qty: 90 3RF Dose Instruction: TAKE 1 TABLET DAILY Rx Instructions: TAKE 1 TABLET DAILY (DME) Dexcom G6 Sensor Device See Rx Instructions .ROUTE .COMPLEX Qty: 9 3RF Dose Instruction: APPLY EVERY 10 DAYS Rx Instructions: APPLY EVERY 10 DAYS atorvastatin 20 mg tablet 20 mg PO DAILY Qty: 90 1RF losartan 25 mg tablet 12.5 mg PO DAILY Qty: 50 0RF hydroxyzine HCl 50 mg tablet See Rx Instructions .ROUTE .COMPLEX Qty: 90 0RF Dose Instruction: TAKE 1 TABLET BY MOUTH FOUR TIMES DAILY NEEDED FOR ANXIETY OR PANIC Rx Instructions: TAKE 1 TABLET BY MOUTH FOUR TIMES DAILY NEEDED FOR ANXIETY OR PANIC (DME) Dexcom G6 Transmitter Device See Rx Instructions .ROUTE .COMPLEX Qty: 1 3RF Dose Instruction: USE EVERY 3 MONTHS Rx Instructions: USE EVERY 3 MONTHS insulin lispro [Humalog U-100 Insulin] 100 unit/mL solution See Rx Instructions .ROUTE .COMPLEX Qty: 60 3RF Dose Instruction: USE UNDER THE SKIN DIRECTED FOR INSULIN PUMP SLIDING SCALE DOSE, MAXIMUM DAILY DOSE 60 UNITS Rx Instructions: USE UNDER THE SKIN DIRECTED FOR INSULIN PUMP SLIDING SCALE DOSE, MAXIMUM DAILY DOSE 60 UNITS escitalopram oxalate 10 mg tablet See Rx Instructions .ROUTE .COMPLEX Qty: 90 0RF Dose Instruction: TAKE 1 TABLET BY MOUTH DAILY Rx Instructions: TAKE 1 TABLET BY MOUTH DAILY Follow-up/Referrals: Mathew Gibbons MD [Primary Care Provider] - Time of Disposition: 10:42 Quality Phoenix Coma Scale Eyes: Open Verbal: Oriented and Alert Motor: Follows Commands [place] Coma Total Score: 15
== END 2024-07-24 10:52 | disposition home or self-care (01) ==
PROVIDERS: Emergency Provider Registered Nurse; PCP Family Medicine
DX: S93.401A Sprain of unspecified ligament of right ankle, initial encounter (principal); S96.911A Strain of unspecified muscle and tendon at ankle and foot level, right foot, initial encounter; X50.9XXA Other and unspecified overexertion or strenuous movements or postures, initial encounter; I10 Essential (primary) hypertension; E10.9 Type 1 diabetes mellitus without complications; Z79.4 Long term (current) use of insulin; E78.5 Hyperlipidemia, unspecified
CPT/HCPCS: 73610; 99213; G0463

== ENCOUNTER 2024-08-27 15:15 | Outpatient (CLI) | payer OTHER, SELFPAY ==
--- NOTE | ~2024-08-27 | MR_ITS ---
EXAMINATION: MR ankle RT wo con DATE: 08/27/2024 16:12 INDICATION: Osteochondral defect at the talus. TECHNIQUE: Magnetic resonance imaging (MRI) of the right ankle was performed without intravenous cont rast. Sequences included sagittal, coronal, and axial proton-density weighted fast spin echo without and with fat saturation. COMPARISON: None. FINDINGS: Medial ankle ligaments: Deep and superficial deltoid ligaments as well as the spring ligament are normal. Lateral ankle ligaments: The anterior and posterior inferior tibiofibular ligaments are normal. The anterior talofibular, calc aneofibular and posterior talofibular ligaments are normal. Tendons: Achilles tendon is normal. The peroneus longus and brevis tendons are normal. The tibialis anterior a nd extensor hallucis longus and extensor digitorum longus tendons are normal. The tibialis posterior, flexor digitorum longus and flexor hallucis longus tendons are normal. Plantar fascia: Plantar aponeurosis is normal. Bones/other: Bone alignment is normal. Normal marrow signal throughout with no fracture or pathologic marrow repla cing process. Joint spaces are normal. Small enthesophyte at the talar footplate of the thickened selene sin talonavicular joint capsule without surrounding edema which could represent sequela of chronic in jury. Fluid: Physiologic amount fluid in the joint spaces. No tenosynovitis, bursitis or other abnormal fluid jean claude ections. IMPRESSION: 1. Mild thickening of the dorsal talonavicular capsular without surrounding edema and with small oste ophytes at the talar insertion which suggests scarring related to chronic injury. 2. Unremarkable right ankle joint and stabilizing ligaments. Reviewed, dictated and finalized at location A. CHIP TERRAZZO WORKER IMPRESSION: 1. Mild thickening of the dorsal talonavicular capsular without surrounding calvin ma and with small osteophytes at the talar insertion which suggests scarring re lated to chronic injury. 2. Unremarkable right ankle joint and stabilizing ligaments.
--- OUTSIDE RECORDS SUMMARY | 2024-08-27 15:24 | XMS_ITS | Continuity of Care Document ---
Author Organization [facility] Address [address] [place] [address] Phone Care Team Providers Care Bus Operator Name Role Phone Minesh Damon MD Unavailable Unavailable Advance Directives Directive Yes / No Effective Date File Name No Information Encounters Encounter Description Practice Location Reason(s) For Visit Diagnoses Date Provider Providers Copied on Encounter [facility], [address], [place], [place], [id number], tel:[phone] Conversion Department No Information Mar[facility] Edge. [address] , [address], [place], [place], [id number], [place]. tel:[phone] [facility], [address], [place], [place], [address], tel:[phone] Conversion Department DMI WO CMP NT [facility] Mar[facility] Edge. [address] , [address], [place], [place], [address], [place]. tel:[phone] Family History Family Member Type Diagnosis Age At Onset No Information Payers Payer name Insurance type Covered alliance party ID Authoriza tion(s) No Information Social History Type Description Quantity Date Captured Comments Sex Male Smoking Status No Information Chief Complaint And Reason For Visit No Information Reason For Referral Reason For Referral No Information History Of Present Illness Encounter Date Complaint History Of Prese nt Illness No Information Functional Status Date Functional Assessmen t No Information Instructions Date Instruction Additional Infor mation No Information Assessments Type Assessment Date No Information Patient Care Teams Name Effective Dates (start - stop) Status Members No Information
--- OUTSIDE RECORDS SUMMARY | 2024-08-27 15:24 | XMS_ITS | Clinical Summary ---
Author Organization [facility] Address [address] [address] Phone Care Team Providers Care Advertising Manager Name Role Phone Marie Chavez MD Primary Care Provider + Allergies No known active allergies Medications insulin lispro, Human, (HUMALOG KWIKPEN) 100 UNIT/ML Solution Pen-injector INJECT UNDER THE SKIN PERINSULIN PROTOCOL. 130 UNITSMAX DAILY 8 Active insulin glargine (LANTUS) 100 UNIT/ML Solution Pen-injector 28 Units by Subcutaneous route nightly. 8 Active imipramine (TOFRANIL) 10 MG TabletIndicatio ns:Acute LUQ pain Take 1 Tab by mouth nightly. 90 Tab 8 Active insulin lispro (HUMALOG) 100 UNIT/ML SolutionIndicat ions:counts carbs, quid, sliding scale by Subcutaneous route 3 times daily (after meals). Use as directed Active Encounters Date Type Department Care Team Description 07/27/2024 Telephone [facility] [address] [place] [address] Marie Chavez MD Follow-up; Letter for School/Work from Last 3 Months Family History Medical History Relation Name Comments Cancer Father skin-benign Hypertension Mother Cancer Paternal Grandmother cancer of bone marrow per pt; breast cancer per pt Relation Name Status Comments Father Mother Paternal Grandmother Social History Tobacco Use Types Packs/Day Years Used Date Smoking Tobacco: Never Smokeless Tobacco: Never Alcohol Use Standard Drinks/Week Comments No 0 (1 standard drink = 0.6 oz pur e alcohol) Sex and Gender Information Value Date Recorded Sex Assigned at Not on file Legal Sex Male 7:31 PM CDT Gender Identity Not on file Sexual Orientation Not on file Last Filed Vital Signs Vital Sign Reading Time Taken Comments Blood Pressure 113/72 07/10/2018 8:14 AM RUG INSPECTOR Pulse 79 07/10/2018 8:14 AM RUG INSPECTOR Temperature 36 C (96.8 F) 07/10/2018 8:14 AM RUG INSPECTOR Respiratory Rate 14 07/10/2018 8:14 AM RUG INSPECTOR Oxygen Saturation 99% 07/10/2018 8:14 AM RUG INSPECTOR room air Inhaled Oxygen Concentration - - Weight 64.9 kg (143 lb) 07/10/2018 6:13 AM RUG INSPECTOR Height 160 cm (5' 3 ) 07/10/2018 6:13 AM RUG INSPECTOR Body Mass Index 25.33 07/10/2018 6:13 AM RUG INSPECTOR Plan of Treatment Health Maintenance Due Date Last Done Comments Hepatitis C Virus (HCV) Screening 1995 TdaP Immunization 1995 Hepatitis B Immunization (1 of 3 - 19+ 3-dose series) 2012 Influenza Immunization (#1) 2024 SARS-COV-2 Immunization ( season) 2024 07/01/2021, 10/04/2020, 09/12/2020 Respiratory Syncytial Virus (RSV) Immunization (Adult) (1 - 1-dose 75+ series) 2068 Meningococcal Immunization (ACWY) Aged Out No longer eligible b ased on patient's age to complete this topic Pneumococcal Immunization Combined Aged Out No longer eligible b ased on patient's age to complete this topic Rotavirus Immunization Aged Out No lo nger eligible based on patient's age to complete this topic Insurance [address] Care Teams Advertising Manager Relationship Specialty Start Date End Date Marie Chavez MD [address] [place] [address] PCP - General Family Medicine 06/23/18
--- OUTSIDE RECORDS SUMMARY | 2024-08-27 15:25 | XMS_ITS ---
Author Organization [facility] Address [address] [place] [address] Phone Care Team Providers Care Delivery Driver Name Role Phone JENN MERINO, SALO Parrish APRN Primary Care Provider [phone] Plan of Treatment Findings Encounter Date Continue current medication SICK VISIT with RENE PARDO-Flex 08/09/2020 Last Documented On 1 11:38AM ; [facility] The options include close observation SI CK VISIT with EVERTON PARDO-Flex 08/09/2020 Last Documented On 1 11:38AM ; [facility] Assessments Includes: Assessments for all patient encounters No Assessments Recorded Medical Equipment - Implanted Devices Includes: Current and historical Devices No Medical Equipment Recorded Medications Includes: Current and historical Medications Current Medications (continue as prescribed) Cephalexin 500 MG Oral Capsule 07/25/2020 Provider: Diagnosis: Last Documented On 08/09/2020 10:52AM By Naida ESPINAL ; [facility] Contour Next Test In Vitro Strip 07/21/2020 Provider : KATHERIN RAMÍREZ MD Diagnosis: Last Documented On 08/09/2020 10:52AM By Naida ESPINAL ; [facility] HumaLOG 100 UNIT/ML Subcutaneous Solution 07/21/2020 Provider: KATHERIN RAMÍREZ MD Diagnosis: Last Documented On 08/09/2020 10:52AM By Naida ESPINAL ; [facility] Albuterol Sulfate HFA 108 (9 0 Base) MCG/ACT Inhalation Aerosol Solution 03/14/2020 Provider: Diagnosis: Last Documented On 08/09/2020 10:52AM By Naida ESPINAL ; [facility] Medications Administered Includes: Administered Medications in patient's chart No Administered Medications Recorded Results Includes: Results from 08/27/2023 through 08/27/2024 No Results Recorded For Specified Dates History of Present Illness History of Present Illness not supported for this document type No History of Present Illness Recorded Social History No Social History Recorded - Smoking Status Unknown Medical History Includes: Medical History in patient's chart Description Last Updated No exposure to a contagious disease 07/15 Last Documented On 1 11:38AM ; [facility] Not taking OTC medications 08/09/2020 Last Documented On 1 11:38AM ; [facility] Family History Includes: Family History in patient's chart No Family History Recorded Review of Systems Review of Systems not supported for this document type No Review of Systems Recorded Mental Status No Mental Status Recorded Functional Status No Functional Status Recorded Physical Exam Physical Exam not supported for this document type No Physical Exam Recorded Insurance Includes: Active Insurance Policies Plan Name Member ID Group # Subscriber Relationship Effect sharon Dates 1 - [facility] [id number] SHU MATHEWS Clinical Notes Includes: Signed Clinical Notes starting from 08/02/2022 No Clinical Notes Recorded
--- OUTSIDE RECORDS SUMMARY | 2024-08-27 15:25 | XMS_ITS ---
Care Plan - [facility] Created on: August 27, 2024 REID ZHANNA Leblanc : 1995 Sex: Male Author Organization [facility] Address [address] [place] [address] Phone Care Team Providers Care Professor Of Religion Name Role Phone JENN MERINO, SALO Parrish APRN Primary Care Provider [phone]
--- OUTSIDE RECORDS SUMMARY | 2024-08-27 15:25 | XMS_ITS | Encounter Summary ---
Author Organization [facility] Address [address] [place] [address] Phone Care Team Providers Care Summer Law Clerk Name Role Phone Marie Chavez MD Primary Care Provider Nick Joyce MD Unavailable Glenn Juarez MD Unavailable [phone] [place] Gil MD Unavailable Emerita Bender NP Primary Care Provider [phone] Mathew Gibbons MD Primary Care Provider [phone] Encounter Details Date Type Department Care Team (Late st Contact Info) Description 10/10/2017 Orders Only [facility] ProviderFlorecita MD [address] [place] [address] Social History Tobacco Use Types Packs/Day Years Used Date Smoking Tobacco: Never Smokeless Tobacco: Never Alcohol Use Standard Drinks/Week Comments No 0 (1 standard drink = 0.6 oz pur e alcohol) Sex and Gender Information Value Date Recorded Sex Assigned at Not on file Legal Sex Male 12:38 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 us Historical Provider LAB BLOOD ORDERABLES Norma l Result documented in this encounter Visit Diagnoses Not on filedocumented in this encounter Additional Health Concerns Infection Onset Date Last Indicated Resolved Time COVID: Suspected 03/14/2020 03/14/2020 03/15/2020 6:46 AM CDT Respiratory Infection (ANCELMO), contact + droplet Comment:Automatically added due to negative COVID-19 result. 03/15/2020 03/15/2020 03/29/2020 3:0 5 AM CDT documented as of this encounter Care Teams Summer Law Clerk Relationship Specialty Start Date End Date Marie Chavez MD PCP - General 10/11/16 04/20/19 Emerita Bender NP [address] [place] [address] [place] [address] PCP - General Family Medicine 04/21/19 07/18/22 Mathew Gibbons MD [address] [place] [address] [place] [address] PCP - General Family Practice 07/19/22 Nick Joyce MD Consulting Physician Medical Oncology 10/07/17 04/20/19 Glenn Juarez MD [address] [place] [address] [place] [address] Consulting Physician Endocrinology 10/07/17 07/18/22 Chico Gil MD [address] [facility] [address] [place], [place] [id number] Consulting Physician Neurology 10/07/17 documented as of this encounter
--- OUTSIDE RECORDS SUMMARY | 2024-08-27 15:25 | XMS_ITS | Data Portability ---
Author Organization [facility] [employer], Main Office Address [address] [place] [address] Care Team Providers Care Office Machine Servicer Name Role Phone AIYANA EMERY Curling Machine Operator Assessment Encounter Date Assessment Date Assessment LastModified by Organization Details LastModified Time 07/27/2024 07/27/2024 This note may have been done utilizing a voice recognition system. Attempts have been made to correct errors. However, there may be uncorrected grammatical, spelling, and recognition errors present. The file time of this note does not necessarily represent the time the patient was seen. Not available 07/27/2024 15:06:58 08/11/2024 08/11/2024 This note may have been done utilizing a voice recognition system. Attempts have been made to correct errors. However, there may be uncorrected grammatical, spelling, and recognition errors present. The file time of this note does not necessarily represent the time the patient was seen. Not available 08/11/2024 14:18:57 Plan of Treatment Reminders Order Date Submit Date Provider Last Modified By Organization Details Last Modified Time Details Appointments Establish ed Patient 15 2024 01:00P Ava Torres DPM Not available Not available Not available Lab None recorded. Referral None recorded. Procedures None recorded. Surgeries None recorded. Imaging MRI, ankle, w/o contrast 2024 025 [email or web address] [facility], [address] [address], [place], [address], 08/23/2024 14:01:54 XR, ankle, 3 or more view 2024 025 [email or web address] [facility] [place], [address], [address], [place], [address], 07/27/2024 15:06:07 Medication Orders None recorded. Patient TargetsNo targets recorded. Patient Instructions Encounter Date Encounter Id Patient Instructions Last Modified By Organization Details Last Modified Time 07/27/2024 [id number] learning about rice (rest, ice, compression, and elevation) judit Not available 07/27/2024 15:06:25 08/11/2024 [id number] learning about rice (rest, ice, compression, and elevation) judit Not available 08/11/2024 14:19:52 Reason for Referral None Reported. Results Created Date Observation Date Name Description Value Unit Range Abnormal Flag Note LastModifiedBy Organization Detail LastModifiedTime 07/27/19 25 XR, ankle , 3 or more view No observ ation record ed. [email or web address] [facility] [place] [address], [address], [place], [address], 07/27/2024 15:04:52 Result Notes None recorded. Problems Name Problem SNOMED Code Status Onset Date Resolution Date Notes Provider Name and Address Organization Details Recorded Time Acute ankle pain 5012717859609 5 Active 2024 Sudheer Torres DPM [address], [address], [place], [address], [employer] 15:04:25 Sprain of right ankle 7814378240536 9105 Active 2024 Sudheer Torres DPM [address], [address], [place], [address], [employer] 15:04:59 Osteochondr al defect of talus 339297050 Active 2024 Sudheer Torres DPM [address], [address], [place], [address], [employer] 14:19:13 Problem Notes None recorded. Procedures Surgical History None recorded. Imaging Results Imaging Date Name Status LastModified by Organiz ation Details LastModified Time 07/27/2024 XR, ankle, 3 or more view completed [email or web address] [facility] [place] [address], [place], [address], 07/27/2024 15:04:52 Procedure Notes None recorded. Medical Equipment None Reported. Allergies No known drug allergies Medications Name Sig Start Date Stop Date Status Note LastModified by Organization Details LastModified Time atorvastatin 20 mg tablet active Not Available Not Available Not Available benzonatate 200 mg capsule TAKE 1 CAPSULE BY MOUTH TWICE DAILY NEEDED FOR COUGH active Not Available Not Available No t Available hydroxyzine HCl 50 mg tablet TAKE 1 TABLET BY MOUTH FOUR TIMES DAILY NEEDED FOR ANXIETY OR PANIC active Not Available Not Available No t Available Humalog U-100 Insulin 100 unit/mL subcutaneous solution INJECT ACCORDING TO SLIDING SCALE VIA PUMP WITH A MAX DOSE OF 60 UNITS DAILY active Not Available Not Available No t Available losartan 25 mg tablet TAKE 1/2 TABLET BY MOUTH DAILY active Not Available Not Available No t Available lisinopril 5 mg tablet active Not Available Not Available No t Available albuterol sulfate HFA 90 mcg/actuation aerosol inhaler INHALE ONE PUFF BY MOUTH FOUR TIMES DAILY NEEDED FOR SHORTNESS OF BREATH OR WHEEZING active Not Available Not Available No t Available Humalog U-100 Insulin 100 unit/mL subcutaneous cartridge INJECT A MAXIMUM OF 60 UNITS PER DAY VIA INSULIN PUMP active Not Available Not Available No t Available escitalopram 10 mg tablet TAKE 1 TABLET BY MOUTH DAILY active Not Available Not Available No t Available Symbicort 160 mcg-4.5 mcg/actuation HFA aerosol inhaler active Not Available Not Available Not Available Dexcom G6 Sensor device active Not Available Not Availabl e Not Available Dexcom G6 Transmitter device active Not Available Not Available Not Available Vitals Date Recorded Body height Body mass index (BMI) Body weight Provider Name and Address Organization Details Last Updated DateTime 07/27/2024 190.5 cm 21.9 kg/m2 01179.66 g Kandis TERRY - [facility] [employer] 07/27/2024 15:21:06 Date Recorded Body height Body mass index (BMI) Body weight Body temperature Respiratory rate Heart rate Oxygen saturation Oxygen saturation in Arterial blood by Pulse oximetry Systolic blood pressure Diastolic blood pressure Provider Name and Address Organization Details Last Updated DateTime 190.5 cm 21.9 kg/m2 39606.6 6 g 97.6 [degF] 14 /min 75 /min 98 % 98 % 130 mm[Hg] 90 mm[Hg] Nusrat Connors [place] [employer] [facility] [employer] [facility] 14:04:18 Social History Question Answer Notes LastModified by Organizat ion Details LastModified Time Tobacco Smoking Status Never Smoker Kandis Mike barnard [place] [employer] [facility] [employer] [facility] 07/27/2024 15:22:02 What Is Your Level Of Alcohol Consumption? None Information not available 07/27/2024 What Is Your Level Of Caffeine Consumption? Occasional Information not available 07/27/2024 What Was The Date Of Your Most Recent Tobacco Screening? 07/27/2024 Information not available 07/27/2024 Do You Use Any Illicit Or Recreational Drugs? No Information not available 07/27/2024 Has Tobacco Cessation Counseling Been Provided? No Information not available 07/27/2024 Do You Or Have You Ever Used Any Other Forms Of Tobacco Or Nicotine? No Information not available 07/27/2024 Sex: Unknown Functional Status None recorded. Mental Status None recorded. Family History Relationship Description Onset Age of this Age Resolved Age Notes LastModified by Organization Details LastModified Time Father No current problems or disability Not available 07/27 15:21:44 Mother No current problems or disability Not available 07/27 15:21:44 Medical History Condition Response DIABETES, TYPE Y HYPERTENSION Y HIGH CHOLESTEROL / HYPERLIPIDEMIA Y Past Encounters Encounter ID Performer Location Encounter Start Date Encounter Closed Date Diagnosis/Indication Diagnosis SNOMED-CT Code Diagnosis ICD10 Code Diagnosis Note [id number] Sudheer Torres DPM [facility] [place] [address] [facility], [facility] [address] [place] [address] 07/27/2024 14:38:58 08/09/2024 09:28:57 Acute ankle pain 9244315047 9105 M25.579 as belowrice therapymin imal activities follow up in 2 weeks Sprain of right ankle 11 66723997 2162401 S93.401A [id number] Sudheer Torres DPM [facility] [place] [address] [facility] [place] [address] 08/11/2024 13:47:23 08/11/2024 16:49:27 Acute ankle pain 6695106367 9105 M25.579 as belowrice therapymin imal activities follow up in 2-3 weeks Sprain of right ankle 11 98286204 2025109 S93.401A obtain MRI rule out OCDcontinu e rice therapymin imal activityno work yetcontinu e cam boot Osteochond ral defect of talus 026368216 M21.6X9 as above Health Concerns Section Related Observation LastModified by Organization Detai ls LastModified Time None Recorded Concern Status LastModified by Organization Details LastModified Time None Recorded Advance Directives Directive None Recorded Payers Encounter Date Sequence Insurance Name Policy Number Policy Ferrera Covered Member ID Ferrera Member ID Guarantor Name 07/27/2024 [facility] Mandel 08/11/2024 [facility] Mandel Notes Date Note Type Note Provider Name and Address Organization Details Recorded Time 07/27/2024 text/html . Patient is a 28-year-old male he presents the office with complaints of pain to his right ankle and 5th ray. Patient states that he was at work getting out of a work truck he states that while he was getting out stepped on an uneven surface which caused him to roll his ankle. Patient states he rolled ankle outward towards the fibula he states that he has been using crutches due to the pain he did go to [facility] had x-rays brought these for review he was found to not have any significant fractures. Patient states the pain is worse when he is standing and walking. Patient denies any other complaints. Patient states he has been taking ibuprofen and Tylenol to control pain. Sudheer Torres DPM [address] [facility], [address], [place], [address], [place] [employer] 07/27/2024 17:00:13 08/11/2024 text/html . Patient is 28-year-old male who returns the office for continued complaints of pain to the right ankle. Patient has been utilizing the cam boot with walking for the last 2 weeks he states that he continues to have pain when standing and walking he states the pain is to the lateral ankle area at the distal fibula as well as deep within the ankle. Patient states the pain is sharp in nature I am concerned for a OCD lesion which I will order an MRI to review he may also have a partial tear of the ATFL which he has discomfort today on palpation to this area. Patient denies any other complaints. Sudheer Torres DPM [address] [facility] [address], [place], [address], [place] [facility] [employer] 08/11/2024 15:28:19
--- OUTSIDE RECORDS SUMMARY | 2024-08-27 15:25 | XMS_ITS | Continuity of Care Document ---
Author Organization [facility] Address [address] [place] [address] [place] [address] Phone Care Team Providers Care Plasterer Spot Name Role Phone Odin Wan MD Unavailable Unavailable Allergies, Adverse Reactions, Alerts Substance Reaction Status Criticality No Known Allergies Active No Inform ation Medications Medication Instructions Dosage Effective Dates (start - stop) Status Comments Lantus Solostar U-100 Insulin 100 unit/mL (3 mL) subcutaneous pen inject by subcutaneous route as per insulin protocol 0.00 - Active Humalog U-100 Insulin 100 unit/mL subcutaneous cartridge inject by subcutaneous route per prescriber's instructions. Insulin dosing requires individualization. 0.00 - Active Procedures Procedure Date Special Eye Evaluation Office/outpatient Visit, [facility] Advance Directives Directive Yes / No Effective Date File Name No Information Encounters Encounter Description Practice Location Reason(s) For Visit Diagnoses Date Provider Providers Copied on Encounter Office/outpa tient Visit, [facility], [address], [place], [place], [id number], [place] tel:[phone] [facility] [place] Professional evaluation (chief complaint) Optic cupping of both eyes [address]. [address] [facility] [address], [place], [place], [address], [place]. tel:[phone] Specialist: Nasra Carbajal MD, [address] [place], [address]. tel:[phone] t: Dustin Rosas OD, [address], [place], [address]. tel:[phone] Provider: Marie Chavez MD, [address] [facility], [address], [place], [address]. tel:[phone] Family History Family Member Type Diagnosis Age At Onset No Information Payers Payer name Insurance type Covered alliance party ID Tomasa shen(s) [facility] CI [id number] Social History Type Description Quantity Date Captured Comments Alcohol Use Details No Caffeine Use Details Tobacco Use Status Current non-smoker 18 Smoking Status Never smoker Non-Smoking Tobacco Use Details : No Details Available : No Details Available Sex Male Chief Complaint And Reason For Visit From encounter dated '04/08/2018 09:00'. evaluation (chief complaint). Description: The 22 year old male presents for evaluation for KF Rings per Dr. Nasra Carbajal MD (liver Dr). Patient is a Type I diabetic and BS was 355 this am. Patient states he is fighting an infection in his arm and is taking Bactrim for 4 days. Patient is a contact lens wearer. Patient states he goes to [place] for contacts and diabetic exam. Patient has no VA complaints. Reason For Referral Reason For Referral No Information History Of Present Illness Encounter Date Complaint History Of Prese nt Illness evaluation The 22 year old male presents for evaluation for KF Rings per Dr. Nasra Carbajal MD (liver Dr). Patient is a Type I diabetic and BS was 355 this am. Patient states he is fighting an infection in his arm and is taking Bactrim for 4 days. Patient is a contact lens wearer. Patient states he goes to [place] for contacts and diabetic exam. Patient has no VA complaints. Functional Status Date Functional Assessmen t No Information Instructions Date Instruction Additional Infor mation Educational material given Relat ed to Optic cupping of both eyes Impression/Plan Assessments Type Assessment Date assessment Optic cupping of both eyes Patient Care Teams Name Effective Dates (start - stop) Status Members No Information
--- OUTSIDE RECORDS SUMMARY | 2024-08-27 15:25 | XMS_ITS | Referral Summary ---
Author Organization [facility] Medical Office Building B Address [address] [place] [address] Care Team Providers Care Podiatric Aide Name Role Phone Chico Gil MD Unavailable Mathew Gibbons MD Primary Care Provider [phone] Encounters Date Type Department Care Team Description 07/28/2024 Telephone [facility] [address] [address] Hawa Ulloa pa for budesonide (Per [facility] no pa needed for budesonide palmer [id number]) from Last 3 Months Allergies No known active allergies Medications glucagon (glucagon) 1 mg kit Inject 1 mL (1 mg total) into the shoulder, thigh, or buttocks as needed (low blood sugar). 1 kit 3 018 Active blood-glucose meter kit Use to check glucose 4 x daily 1 kit 021 Active lancets misc Use to check glucose 4 x daily 400 each 3 021 Active insulin glargine (SEMGLEE-yfgn) 100 unit/mL vial for injection USE DIRECTED BEFORE MEALS, + SLIDING SCALE AVERAGE 30 UNITS PER DAY 30 mL 1 022 Active blood glucose diagnostic (FreeStyle Lite Strips) strip USE 1 STRIP TO CHECK GLUCOSE UP TO 4 TIMES DAILY. DX E10.65 400 each 3 Active insulin syringe-needle U-100 (TRUEplus Insulin) 0.5 mL 31 gauge x 5/16 syringe USE TO INJECTLANTUS INSULIN ONE TIME EACH DAY 100 each Active pen needle, diabetic (TRUEplus Pen Needle) 31 gauge x 5/16 needleIndication s:Type 1 diabetes mellitus with hyperglycemia (HCC) USE UP TO 5 PEN NEEDLES PER DAY FOR INSULIN PEN 400 each 4 Active escitalopram (LEXAPRO) 10 mg tablet Active hydrOXYzine (ATARAX) 50 mg tablet Active blood-glucose meter,continuous (Dexcom G6 Councilperson) misc Use to monitor glucose levels 1 each Active blood-glucose sensor (Dexcom G6 Sensor) device Use to monitor glucose levels, change sensor every 10 days 9 each 3 Active blood-glucose transmitter (Dexcom G6 Transmitter) device Use to monitor glucose levels, change transmitter every 90 days 1 each 3 023 Active insulin lispro (HumaLOG) 100 unit/mL vial for injection use as directed via pump- max 45 units /day 40 mL 3 Active atorvastatin (LIPITOR) 20 mg tablet Active losartan (COZAAR) 25 mg tablet Take 0.5 tablets (12.5 mg total) by mouth daily Active budesonide-formo teroL (SYMBICORT) 160-4.5 mcg/actuation inhaler Inhale 2 puffs 2 (two) times a day Rinse mouth with water after use. Do not swallow. 10.2 g 3 024 Active insulin glargine (insulin glargine) 100 unit/mL vial for injection Inject 28 Units under the skin nightly 30 mL 1 022 2021 Discontinued Active Problems Problem Noted Date Diagnosed Date Tracheomegaly 05/17/2024 Cough 03/25/2024 Gilbert's syndrome 04/21/2019 Type 1 diabetes mellitus with hyperglycemia 0812/2018 Assessment & Plan (07/19/2022 3:15 PM SENIOR CONSTRUCTION ESTIMATOR): Diagnosed in 1998, at the age of 3. Control : poor control A1c 11.1% on 07/19/22 A1c 8.0% on 03/09/21 A1c 6.8% on 06/21/19. A1c 8.9% on 02/16/19. Kidney: normal kidney functions in March/2019 Neuropathy : none Plan: Discussed ADA diet. Continue on Lantus 28 units once /day Use Humalog insulin before each meal. 1: 10 carb ratio Add correction as follows: + 1 units > 150 + 2 units > 200 + 3 units > 250 + 4 units > 300 Monitor sugars 4 xper day and bring records. Hypoglycemia symptoms and treatment reviewed with patient. Call if having low sugars. Ophthalmology exam on annual basis Assessment & Plan (03/09/2021 12:11 PM CDT): Diagnosed in 1998, at the age of 3. Control : CGM reviewed showing post prandial hyperglycemia after meals due to lack of bolus. A1c 8.0% on 03/09/21 A1c 6.8% on 06/21/19. A1c 8.9% on 02/16/19. A1c 8.2% on 09/25/18 A1c 8.8% in September/2017 A1c was 9.7% in April 2017. Kidney: normal kidney functions in March/2019 Neuropathy : none Plan: Continue on Lantus 28 units once /day Use Humalog insulin before each meal. 1: 10 carb ratio Add correction as follows: + 1 units > 150 + 2 units > 200 + 3 units > 250 + 4 units > 300 Monitor sugars 4 xper day and bring records. Hypoglycemia symptoms and treatment reviewed with patient. Call if having low sugars. Ophthalmology exam on annual basis Spasm of abdominal muscles of left side 10/08/19 18 Assessment & Plan (04/21/2019 12:17 PM CDT): Will renew flexeril as this has worked for him in the past. Seems to self- resolve. May f/u prn Type 1 diabetes mellitus without complication Overview (10/19/2016): DMI WO CMP NT ST UNCNTRL Resolved Problems Problem Noted Date Diagnosed Date Resolved Date Uncontrolled type 1 diabetes mellitus with hyperglycemia 09/25/2018 02/16/2019 Pressure injury of right ankle, stage 2 09/03/2018 04/21/2019 Assessment & Plan (09/03/2018 10:14 PM SENIOR CONSTRUCTION ESTIMATOR): Apply silvadene to ulcer. Apply twice daily with dressing changes. Keep clean/dry. Recommended padding and good boot fitting to prevent further shearing. Call if difficulty healing or sore worsens. Staph infection 03/31/2018 04/21/2019 Assessment & Plan (03/31/2018 8:35 AM CDT): Treat with septra bid x 10 days. Keep clean and covered until healed. Call if no improvement in 5-7 days or for worsening of symptoms. Hyperbilirubinemia 10/07/2017 9 Assessment & Plan (01/23/2018 6:44 PM CDT): He has a long history of indirect hyperbilirubinemia, dating back to at least 2006 in our system. Given his absence of other liver test abnormalities, I discussed with him and his family that I believe this is most likely Gilbert's syndrome. Consistent with this, they have noticed that he sometimes develops scleral icterus when he is otherwise ill. However, the findings suggestive of hemolysis (low haptoglobin and elevated reticulocyte count) are also noted, although he is not anemic. He will have additional serologic testing to look for evidence of Han's disease, as this can be associated with hemolysis. He plans to have these labs drawn locally. I will arrange further follow-up as needed based on these results. Polycythemia 10/07/2017 04/21/2019 History of diabetes mellitus, type I 10/07/2017 04/21/2019 Immunizations Name Administration Dates Next Due Influenza, Quadrivalent, Spl it, Intramuscular 08/15/2018 Influenza, Split 04/21/2012,03/29/2011 Influenza, Trivalent, IM (MDV) 04/13/2008,2006 Influenza, Unspecified 04/13/2020(Deferr ed: Patient Refused),08/15/2018 Meningococcal MCV4P (Menactra) 02/18/2008 Varicella 02/18/2008 Social History Tobacco Use Types Packs/Day Years Used Date Smoking Tobacco: Never Smokeless Tobacco: Never Tobacco Cessation:Counseling Given: Not Answered Alcohol Use Standard Drinks/Week Comments No 0 (1 standard drink = 0.6 oz pur e alcohol) AUDIT-C Answer Date Recorded Q1: How often do you have a drink containing alcohol? Never 04/27/2024 Q2: How many drinks containi ng alcohol do you have on a typical day when you are drinking? Patient does not drink Q3: How often do you have si x or more drinks on one occasion? Never 04/27/2024 PHQ-2 Answer Date Recorded PHQ-2 Total Score (If total score is 3 or more points, staff should administer the PHQ-9) 0 08/04/2020 Personal Safety Answer Date Recorded Have you ever been in or are you currently in a harmful physical or emotional relationship or is someone making you feel afraid or unsafe? Denies 04/27/2024 Sex and Gender Information Value Date Recorded Sex Assigned at Not on file Legal Sex Male 12:38 PM SENIOR CONSTRUCTION ESTIMATOR Gender Identity Not on file Sexual Orientation Not on file Last Filed Vital Signs Vital Sign Reading Time Taken Comments Blood Pressure 122/77 04/27/2024 3:20 PM CDT Pulse 77 04/27/2024 3:20 PM CDT Temperature 36.1 C (96.9 F) 04/27/2024 3:00 PM CDT Respiratory Rate 13 04/27/2024 3:20 PM CDT Oxygen Saturation 97% 04/27/2024 3:20 PM CDT Inhaled Oxygen Concentration - - Weight 79.4 kg (175 lb) 04/27/2024 1:00 PM CDT Height 162.6 cm (5' 4 ) 04/27/2024 1:00 PM CDT Body Mass Index 30.04 04/27/2024 1:00 PM CDT Plan of Treatment Not on file Procedures Procedure Name Priority Date/Time Associated Diagnosis Comments DIABETIC EYE EXAM Routine 11/27/2022 POCT HEMOGLOBIN A1C Routine 07/19/2022 3 :02 PM SENIOR CONSTRUCTION ESTIMATOR Type 1 diabetes mellitus with hyperglycemia (HCC) LIPID PANEL Routine 03/19/2019 EGFR Routine 01/27/2018 1:46 PM CDT Hyperbilirubinemia HEPATITIS PANEL, ACUTE Routine 10/07/2017 10:29 AM CDT HM DIABETES FOOT EXAM Routine 10/02/2017 from Last 3 Months or Most Recently Relevant to Health Maintenance Results * (ABNORMAL) Diabetic Eye Exam (11/27/2022) Florecita Pierre MD HEALTH MAINTENANCE Final Result * (ABNORMAL) POCT hemoglobin A1c (07/19/2022 3:02 PM SENIOR CONSTRUCTION ESTIMATOR) Hemoglobin A1C, POC 11.1 Blood 07/19/2022 3:02 PM SENIOR CONSTRUCTION ESTIMATOR us Glenn Juarez MD POINT OF CARE TEST ORDERABLES Final Result * Lipid panel (03/19/2019) Triglycerides 72 40 - 160 mg/dL Cholesterol 156 0 - 200 mg/dL HDL 48 35 - 70 mg/dL LDL Cholesterol 102 mg/dL Blood specimen (specimen) us Glenn Juarez MD LAB BLOOD ORDERABLES Final Res ult * eGFR (01/27/2018 1:46 PM CDT) eGFR >60 mL/min/1.7 3 m2 [facility] ([facility]) Comment: Interpretive Data Reference Interval Normal >/= 90 mL/min/1.73m2 Mildly decreased* 60 - 89 mL/min/1.73m2 Mildly to moderately decreased 45 - 59 mL/min/1.73m2 Moderately to severely decreased 30 - 44 mL/min/1.73m2 Severely decreased 15 - 29 mL/min/1.73m2 Kidney Failure < 15 mL/min/1.73m2 *Relative to young adult level If -[place] multiply value by 1.16. Estimated glomerular filtration rate is determined by the CKD-EPI equation recommended by the National Kidney Foundation (KDIGO 2012 Clinical Practice Guideline for the Evaluation and Management of Chronic Kidney Disease. Kidney Intnl Suppl Jul 2012;3:1). The CKD-EPI equation should not be used for patients with unstable renal function and has not been validated in children and those over 70. Current interpretive data was last reviewed 2016. Blood specimen (specimen) 01/27/2018 1:46 PM CDT 01/27/2018 4:59 PM CDT Narrative [facility] ([facility]) - 01/27/2018 5:26 PM CDT Nick Joyce MD LAB BLOOD ORDERABLES F inal Result Performing Organization Address [facility]/ZIP Co de Phone Number [facility] ([facility]) [address] [facility] [place] [address] * Hepatitis panel, acute (10/07/2017 10:29 AM CDT) Hep A IgM Negative Negative [facility] ([facility]) Comment:Testing performed by : [facility], [address] [place] [address]., [id number] Hep B core IgM Negative Negative [facility] ([facility]) Comment:Testing performed by : [facility], [address] [place] [address]., [id number] Hep C Ab Negative Negative [facility] ([facility]) Comment:Testing performed by : [facility], [address] [place] [address]., [id number] HepBsAg Negative Negative [facility] ([facility]) Comment:Testing performed by : [facility], [address] [place] [address]., [id number] Blood specimen (specimen) 10/07/2017 10:29 AM CDT 10/07/2017 6:17 PM CDT Narrative [facility] ([facility]) - 10/07/2017 8:16 PM CDT Nick Joyce MD LAB MICROBIOLOGY - GEN ERAL ORDERABLES Final Result Performing Organization Address City/[facility]/ZIP Co de Phone Number [facility] ([facility]) [address] [facility] [place] [address] * DIABETES FOOT EXAM (10/02/2017) [facility] Diabetic Foot Exam Unknown us Historical Provider HEALTH MAINTENANCE Final Result from Last 3 Months or Most Recently Relevant to Health Maintenance Insurance DR YUN [id number] CHOICE PLUS Advance Directives For more information, please contact: [phone] * Full Code (Latest Code Status on File) Date Activated Date Inactivated Comments 10/07/2017 6:11 AM 10/07/2017 9:04 PM Care Teams Podiatric Aide Relationship Specialty Start Date End Date Mathew Gibbons MD PCP - General Family Practice 07/19/22 Chico Gil MD Consulting Physician Neurology 10/07/17
--- OUTSIDE RECORDS SUMMARY | 2024-08-27 15:25 | XMS_ITS | Clinical Summary ---
Author Organization [facility] Address [address] [place] [address] Phone Care Team Providers Care Key Punch Operator Name Role Phone JENN MERINO, SALO Parrish APRN Primary Care Provider [phone] Reason for Visit and Chief Complaint The Chief Complaint is: FRIDAY PT HAS HEADACHE, CHILLS BODY ACHES, AND SCRATCHY THROAT. 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 Patient advised that they may return to work/school when fever free for 24 hours and symptoms have improved. Call with development of additional or worsening symptoms. Go to ED with severe respiratory symptoms. - Last Documented On 08/09/2020 11:38AM ; [facility] Assessments Includes: Assessments from this encounter No Assessments Recorded Medical Equipment - Implanted Devices Includes: Current Devices No Medical Equipment Recorded Medications Includes: Medications discussed during this encounter and other current Medications Current Medications (continue as prescribed) Cephalexin 500 MG Oral Capsule 07/25/2020 Provider: Diagnosis: Last Documented On 08/09/2020 10:52AM By Naida ESPINAL ; [facility] Contour Next Test In Vitro Strip 07/21/2020 Provider : KATHERIN RAMÍREZ MD Diagnosis: Last Documented On 08/09/2020 10:52AM By Naida ESPINAL ; [facility] HumaLOG 100 UNIT/ML Subcutaneous Solution 07/21/2020 Provider: KATHERIN RAMÍREZ MD Diagnosis: Last Documented On 08/09/2020 10:52AM By Naida ESPINAL ; [facility] Albuterol Sulfate HFA 108 (9 0 Base) MCG/ACT Inhalation Aerosol Solution 03/14/2020 Provider: Diagnosis: Last Documented On 08/09/2020 10:52AM By Naida ESPINAL ; [facility] Medications Administered Includes: Administered Medications from this encounter No Administered Medications Recorded Vital Signs Includes: Vital Signs from this encounter Vital Name 08/09/2020 10:53A Pulse Rate-Sitting (bpm) 69 Temp-Oral (F) 98.5 Oxygen Saturation (%) 97 Last Documented: On 08/09/2020 10:53A M ; [facility] Results Includes: Results discussed during this encounter Rapid COVID Test [facility] Ordered by EVERTON MCDANIELS on 07/15 Collected: Reported: 08/09/2020 11:06 Last Documented On 11:06AM ; [facility] Reviewed on 08/09/2020; All test results are final unless otherwise noted. Rapid COVId NEG N (Normal) Last Documented On 11:06AM ; [facility] Int. QC Acceptable N (Normal) Last Documented On 11:06AM ; [facility] Lot # and Exp. Date [id number] 10/16/2020 N (Normal) Last Documented On 11:06AM ; [facility] History of Present Illness Includes: History of Present Illness from this encounter MATTHEW MATHEWS is a 24 year old male. - Allergy list reviewed - Medication reconciliation performed - Feeling tired - Chills - Not feeling poorly (malaise) - No fever - Headache - No sinus pain - No swollen glands in the neck - Nasal discharge - Sore throat - No ear symptoms - No earache - No postnasal drip - No nasal passage blockage (stuffiness) - No sneezing - No chest pain or discomfort - Not feeling congested in the chest - No shortness of breath - No cough - Not coughing up sputum - No wheezing - Normal appetite - No nausea - No vomiting - No abdominal pain - No diarrhea - Myalgias - No anosmia - No taste disturbances - Not unpleasantly altered - No skin symptoms Zhanna is a 24-year-old male patient that presented to the respiratory clinic for headache, chills, body aches and scratchy throat that started two days ago. He reports symptoms have improved. He denies any known exposure to COVID. Reports history of type 1 diabetes-his blood sugars have been controlled. Social History No Social History Recorded - Smoking Status Unknown Procedures and Surgical History Includes: Procedures from this encounter Procedures Code Diagnosis Performing Provider Service L ocation Service Date Pt to use OTC fever/pain product as needed per product instruction.~ Last Documented On 1 11:34AM ; [facility] plan of care reviewed and agreed to Last Documented On 1 11:34AM ; [facility] patient to call if symptoms worsen or not improved to update patient's status as needed Last Documented On 1 11:34AM ; [facility] review of medications documented 1160F Last Documented On 1 10:53AM ; [facility] Medical History Includes: Medical History addressed during this encounter Description Last Updated No exposure to a contagious disease 07/15 Last Documented On 1 11:38AM ; [facility] Not taking OTC medications 08/09/2020 Last Documented On 1 11:38AM ; [facility] Family History Includes: Family History addressed during this encounter No Family History Recorded Review of Systems Includes: Review of Systems from this encounter Systemic: No systemic symptoms and no fever. Head: Headache. Otolaryngeal: No earache. Nasal discharge and sore throat. Cardiovascular: No chest pain or discomfort. Pulmonary: No cough and no wheezing. Gastrointestinal: No vomiting, no abdominal pain, and no diarrhea. Skin: No skin lesions. Mental Status Includes: Mental Status from this encounter No Mental Status Recorded Functional Status Includes: Functional Status from this encounter No Functional Status Recorded Physical Exam Includes: Physical Exam from this encounter Encounters Encounter Provider Location Date Check-In Time Check-Out Time Diagnosis SICK VISIT [facility] P[facility] 1 11:00AM 11:13AM Insurance Includes: Active Insurance Policies Plan Name Member ID Group # Subscriber Relationship Effect sharon Dates - R [id number] SHU MATHEWS Clinical Notes Includes: Clinical Notes from this encounter No Clinical Notes Recorded
--- OUTSIDE RECORDS SUMMARY | 2024-08-27 15:25 | XMS_ITS | Clinical Summary ---
Author Organization [facility] Medical Office Building B Address [address] [place] [address] Care Team Providers Care Jumpbasting Lining Baster Name Role Phone Chico Gil MD Unavailable Mathew Gibbons MD Primary Care Provider [phone] Allergies No known active allergies Medications glucagon [...] TIMES DAILY. DX E10.65 400 each 3 022 Active insulin syringe-needle U-100 (TRUEplus Insulin) 0.5 mL 31 gauge x 5/16 syringe USE TO INJECTLANTUS INSULIN ONE TIME EACH DAY 100 each 022 Active pen needle, diabetic (TRUEplus Pen Needle) 31 gauge x 5/16 needleIndication s:Type 1 diabetes mellitus with hyperglycemia (HCC) USE UP TO 5 PEN NEEDLES PER DAY FOR INSULIN PEN 400 each 4 Active escitalopram (LEXAPRO) 10 mg tablet Active hydrOXYzine (ATARAX) 50 mg tablet Active blood-glucose meter,continuous (Dexcom G6 Patient Financial Services Specialist) misc Use to monitor glucose levels 1 each Active blood-glucose sensor (Dexcom G6 Sensor) device Use to monitor glucose levels, change sensor every 10 days 9 each 3 023 Active blood-glucose transmitter (Dexcom G6 Transmitter) device Use to monitor glucose levels, change transmitter every 90 days 1 each 3 023 Active insulin lispro (HumaLOG) 100 unit/mL vial for injection use as directed via pump- max 45 units /day 40 mL 3 023 Active atorvastatin (LIPITOR) 20 mg tablet Active losartan (COZAAR) 25 mg tablet Take 0.5 tablets (12.5 mg total) by mouth daily 024 Active budesonide-formo teroL (SYMBICORT) 160-4.5 mcg/actuation inhaler [...] 04/21/2019 Type 1 diabetes mellitus with hyperglycemia 12/2018 Assessment & Plan (07/19/2022 3:15 PM PRIVATE BRANCH EXCHANGE SERVICE ADVISOR): Diagnosed in 1998, at the age of [...] 04/21/2019 Assessment & Plan (09/03/2018 10:14 PM PRIVATE BRANCH EXCHANGE SERVICE ADVISOR): Apply silvadene to ulcer. Apply twice daily [...] of diabetes mellitus, type I 10/07/2017 04/21/2019 Encounters Date Type Department Care Team Description 07/28/2024 Telephone [facility] Pulmonary [address] [address] [place]a Ulloa pa for budesonide (Per [facility] scripts [facility] no pa needed for budesonide palmer [id number]) from Last 3 Months Immunizations Name Administration Dates Next Due Influenza, Quadrivalent, Spl it, Intramuscular 08/15/2018 Influenza, Split 04/21/2012,03/29/2011 Influenza, Trivalent, IM (MDV) 04/13/2008,2006 Influenza, Unspecified 04/13/2020(Deferr ed: Patient Refused),08/15/2018 Meningococcal MCV4P (Menactra) 02/18/2008 Varicella 02/18/2008 Surgical History Surgery Date Site/Laterality Comments NO PAST SURGERIES ESOPHAGOGASTRODUODENOSCOPY Medical History Medical History Date Comments Type 1 diabetes mellitus had DKA related to influenza Staph infection 2010 Family History Medical History Relation Name Comments Diabetes Maternal Grandfather Hypertension Mother Hypertension Other 1 Diabetes Other 2 Cancer Other 3 grandmother wit h bone marrow cancer Relation Name Status Comments Maternal Grandfather Mother Other 1 Other 2 Other 3 Social History Tobacco Use Types Packs/Day Years [...] on file Legal Sex Male 12:38 PM PRIVATE BRANCH EXCHANGE SERVICE ADVISOR Gender Identity Not on file Sexual Orientation Not on file Obstetrics History Last Filed Vital Signs Vital Sign Reading [...] 04/27/2024 1:00 PM CDT Plan of Treatment Health Maintenance Due Date Last Done Comments Albumin Creatinine Ratio, Urine 1993 TSH Level 1993 Pneumococcal vaccine <65 (1 of 2 - PCV) 11/20/1999 DTaP/Tdap/Td Vaccine (1 - Tdap) 2004 Varicella Vaccines (2 of 2 - 13+ 2-dose series) 03/17/2008 02/18/2008 Hepatitis B Screening 11/20/2011 Regular Well Visit/Exam 18-64 11/20/2011 eGFR 01/27/2019 01/27/2018, 12/13, 11/05/2017, Additional history exists Lipid Panel 03/19/2020 03/19/2019 Depression Screening 08/04/2021 08/04/2020, 09/03/2018, 06/18/2017 Hemoglobin A1C 01/16/2023 07/19/2022, 02/12, 06/21/2019, Additional history exists Foot Exam 07/19/2023 07/19/2022, 02/12, 06/21/2019, Additional history exists Influenza Vaccine (#1) 2024 9, 08/15/2018, 04/21/2012, Additional history exists Dilated Eye Exam 11/27/2024 11/27/2022, 06/2020, 04/16/2019, Additional history exists Hepatitis C Screening Completed 10/07/2017 HPV Vaccines Aged Out No longer eligi ble based on patient's age to complete this topic Procedures Procedure Name Priority Date/Time Associated Diagnosis Comments DIABETIC EYE EXAM Routine 11/27/2022 POCT HEMOGLOBIN A1C Routine 07/19/2022 3 :02 PM PRIVATE BRANCH EXCHANGE SERVICE ADVISOR Type 1 diabetes mellitus with hyperglycemia (HCC) [...] (ABNORMAL) POCT hemoglobin A1c (07/19/2022 3:02 PM PRIVATE BRANCH EXCHANGE SERVICE ADVISOR) Pathologist [facility] [place] Hemoglobin A1C, POC 11.1 Blood 07/19/2022 3:02 PM PRIVATE BRANCH EXCHANGE SERVICE ADVISOR us Glenn Juarez MD POINT OF CARE TEST ORDERABLES Final Result * Lipid panel (03/19/2019) Pathologist [facility] [place] Triglycerides 72 40 - 160 mg/dL Cholesterol 156 0 - 200 mg/dL HDL 48 35 - 70 mg/dL LDL Cholesterol 102 mg/dL Blood specimen (specimen) us Glenn Juarez MD LAB BLOOD ORDERABLES Final Res ult * eGFR (01/27/2018 1:46 PM CDT) Pathologist [facility] [place] eGFR >60 mL/min/1.7 3 m2 DAISY MAC (LI) Comment: Interpretive Data Reference Interval Normal >/= 90 mL/min/1.73m2 Mildly decreased* 60 - 89 mL/min/1.73m2 Mildly to moderately decreased 45 - 59 mL/min/1.73m2 Moderately to severely decreased 30 - 44 mL/min/1.73m2 Severely decreased 15 - 29 mL/min/1.73m2 Kidney Failure < 15 mL/min/1.73m2 *Relative to young adult level If -Japanese multiply value by 1.16. Estimated glomerular filtration [...] ORDERABLES F inal Result Performing Organization Address City/[facility]/ZIP Co de Phone Number DAISY MAC (LI) 1 [facility] Department [place] [address] * Hepatitis panel, acute (10/07/2017 10:29 AM CDT) Hep A IgM Negative Negative [facility] ([place]) Comment:Testing performed by : [facility], [address] [place] [address], [id number] Hep B core IgM Negative Negative [facility] ([place]) Comment:Testing performed by : [facility], [address] [place] [address], [id number] Hep C Ab Negative Negative [facility] ([facility]) Comment:Testing performed by : [facility], [address] [place] [address], [address] HepBsAg Negative Negative [facility] ([facility]) Comment:Testing performed by : [facility], [address] [place] [address], [id number] Blood specimen (specimen) 10/07/2017 10:29 AM CDT 10/07/2017 6:17 PM CDT Narrative [facility] ([place]) - 10/07/2017 8:16 PM CDT Nick Joyce MD LAB MICROBIOLOGY - GEN ERAL ORDERABLES Final Result Performing Organization Address City/[facility]/ZIP Co de Phone Number DAISY MAC (LI) 1 [facility] Department [place] [address] * DIABETES FOOT EXAM (10/02/2017) Diabetic Foot Exam Unknown [facility] Provider HEALTH MAINTENANCE Final Result from Last 3 Months or Most Recently Relevant to Health Maintenance Insurance [address] CHOICE PLUS [address] CHOICE PLUS [address] CHOICE PLUS Advance Directives For more information, please contact: [phone] * Full Code (Latest Code Status on File) Date Activated Date Inactivated Comments 10/07/2017 6:11 AM 10/07/2017 9:04 PM Care Teams Jumpbasting Lining Baster Relationship Specialty Start Date End Date Mathew Gibbons MD PCP - General Family Practice 07/19/22 Chico Gil MD Consulting Physician Neurology 10/07/17
== END 2024-08-27 15:16 | disposition home or self-care (01) ==
PROVIDERS: PCP Nurse Practitioner Adult Health; Visit Provider Podiatrist Foot & Ankle Surgery
DX: M93.271 Osteochondritis dissecans, right ankle and joints of right foot (principal); M25.471 Effusion, right ankle; M25.774 Osteophyte, right foot
CPT/HCPCS: 73721

== ENCOUNTER 2024-09-05 11:40 | Emergency (ER) | payer OTHER, SELFPAY ==
--- NOTE | ~2024-09-05 | XR_ITS ---
EXAMINATION: XR chest 2V DATE: 09/05/2024 12:14 INDICATION: Cough. TECHNIQUE: Frontal and lateral views of the chest were obtained. COMPARISON: Chest view right 02/16/24, chest CT 09/19/2023 FINDINGS: There is no pneumonia, pleural effusion, or pneumothorax. The heart size is normal. IMPRESSION: 1. No acute cardiopulmonary disease. Reviewed, dictated and finalized at location A. QUALITY ASSURANCE ANALYST
--- OUTSIDE RECORDS SUMMARY | 2024-09-05 11:43 | XMS_ITS | Referral Summary ---
Author Organization [facility] Medical Office Building B Address [address] [place] [address] Care Team Providers Care Web Interface Developer Name Role Phone Chico Gil MD Unavailable Mathew Gibbons MD Primary Care Provider [phone] Encounters Date Type Department Care Team Description 07/28/2024 Telephone [facility] [address] [address] [place]a Ulloa pa for budesonide (Per [facility] scripts [facility] no pa needed for budesonide palmer [id number]) from Last 3 Months Allergies No known [...] mg tablet Active blood-glucose meter,continuous (Dexcom G6 Cue Selector) misc Use to monitor glucose levels 1 [...] 0812/2018 Assessment & Plan (07/19/2022 3:15 PM HEALTH INFORMATION CLERK): Diagnosed in 1998, at the age of [...] 04/21/2019 Assessment & Plan (09/03/2018 10:14 PM HEALTH INFORMATION CLERK): Apply silvadene to ulcer. Apply twice daily [...] diabetes mellitus, type I 10/07/2017 04/21/2019 Immunizations Immunization Administration Dates Next Due Influenza, Quadrivalent, Spl [...] on file Legal Sex Male 12:38 PM HEALTH INFORMATION CLERK Gender Identity Not on file Sexual Orientation [...] HEMOGLOBIN A1C Routine 07/19/2022 3 :02 PM HEALTH INFORMATION CLERK Type 1 diabetes mellitus with hyperglycemia (HCC) [...] (ABNORMAL) POCT hemoglobin A1c (07/19/2022 3:02 PM HEALTH INFORMATION CLERK) Hemoglobin A1C, POC 11.1 Blood 07/19/2022 3:02 PM HEALTH INFORMATION CLERK us Glenn Juarez MD POINT OF CARE [...] mL/min/1.73m2 *Relative to young adult level If -Bolivian multiply value by 1.16. Estimated glomerular filtration [...] 01/27/2018 4:59 PM CDT Narrative [facility] ([place]) - 01/27/2018 5:26 PM CDT Nick Joyce MD LAB BLOOD ORDERABLES F inal Result Performing Organization Address [facility]/ZIP Co de Phone Number DAISY MAC (LI) 1 [facility] [place] [address] * Hepatitis panel, acute (10/07/2017 10:29 AM CDT) Hep A IgM Negative Negative [facility] (LI) Comment:Testing performed by : [facility], [address] [place] [address]., [id number] Hep B core IgM Negative Negative [facility] (LI) Comment:Testing performed by : [facility], [address] [place] [address]., [id number] Hep C Ab Negative Negative [facility] ([facility]) Comment:Testing performed by : [facility], [address] [place] [address]., [id number] HepBsAg Negative Negative [facility] ([facility]) Comment:Testing performed by : [facility], [address] [place] [address]., [id number] Blood specimen (specimen) 10/07/2017 10:29 AM CDT 10/07/2017 6:17 PM CDT Narrative [facility] ([facility]) - 10/07/2017 8:16 PM CDT Nick Joyce MD LAB MICROBIOLOGY - GEN ERAL ORDERABLES Final Result Performing Organization Address City/[facility]/ZIP Co de Phone Number DAISY MAC (LI) 1 [facility] [place] [address] * DIABETES FOOT EXAM (10/02/2017) [facility] Diabetic Foot Exam Unknown us Historical Provider HEALTH MAINTENANCE Final Result from Last 3 Months or Most Recently Relevant to Health Maintenance Insurance DR YUN [id number] CHOICE PLUS Advance Directives For more information, please contact: [phone] * Full Code (Latest Code Status on File) Date Activated Date Inactivated Comments 10/07/2017 6:11 AM 10/07/2017 9:04 PM Care Teams Web Interface Developer Relationship Specialty Start Date End Date Mathew Gibbons MD PCP - General Family Practice 07/19/22 Chico Gil MD Consulting Physician Neurology 10/07/17
--- OUTSIDE RECORDS SUMMARY | 2024-09-05 11:43 | XMS_ITS | Clinical Summary ---
Author Organization [facility] Medical Office Building B Address [address] [place] [address] Care Team Providers Care Stencil Typist Name Role Phone Chico Gil MD Unavailable Mathew Gibbons MD Primary Care Provider [phone] Allergies No known active allergies Medications glucagon [...] mg tablet Active blood-glucose meter,continuous (Dexcom G6 Oracle Bpm Developer) misc Use to monitor glucose levels 1 [...] 12/2018 Assessment & Plan (07/19/2022 3:15 PM STACKER ATTENDANT): Diagnosed in 1998, at the age of [...] 04/21/2019 Assessment & Plan (09/03/2018 10:14 PM STACKER ATTENDANT): Apply silvadene to ulcer. Apply twice daily [...] Type Department Care Team Description 07/28/2024 Telephone [facility] Pulmonary [address] [address] [place]a Ulloa pa for budesonide (Per [facility] scripts [facility] no pa needed for budesonide palmer [id number]) from Last 3 Months Immunizations Immunization Administration Dates Next Due Influenza, [...] on file Legal Sex Male 12:38 PM STACKER ATTENDANT Gender Identity Not on file Sexual Orientation [...] Creatinine Ratio, Urine 1993 TSH Level 1993 DTaP/Tdap/Td Vaccine (1 - Tdap) 2004 Varicella Vaccines (2 of 2 - 13+ 2-dose series) 03/17/2008 02/18/2008 Hepatitis B Screening 11/20/2011 Regular Well Visit/Exam 18-64 11/20/2011 Pneumococcal vaccine <65 (1 of 2 - PCV) 2012 eGFR 01/27/2019 01/27/2018, 12/13, 11/05/2017, Additional history [...] HEMOGLOBIN A1C Routine 07/19/2022 3 :02 PM STACKER ATTENDANT Type 1 diabetes mellitus with hyperglycemia (HCC) [...] (ABNORMAL) POCT hemoglobin A1c (07/19/2022 3:02 PM STACKER ATTENDANT) Pathologist [facility] Hemoglobin A1C, POC 11.1 Blood 07/19/2022 3:02 PM STACKER ATTENDANT us Glenn Juarez MD POINT OF CARE TEST ORDERABLES Final Result * Lipid panel (03/19/2019) Pathologist [facility] Triglycerides 72 40 - 160 mg/dL Cholesterol 156 0 - 200 mg/dL HDL 48 35 - 70 mg/dL LDL Cholesterol 102 mg/dL Blood specimen (specimen) us Glenn Juarez MD LAB BLOOD ORDERABLES Final Res ult * eGFR (01/27/2018 1:46 PM CDT) Pathologist [facility] eGFR >60 mL/min/1.7 3 m2 DAISY MAC (LI) Comment: Interpretive Data Reference Interval Normal >/= 90 mL/min/1.73m2 Mildly decreased* 60 - 89 mL/min/1.73m2 Mildly to moderately decreased 45 - 59 mL/min/1.73m2 Moderately to severely decreased 30 - 44 mL/min/1.73m2 Severely decreased 15 - 29 mL/min/1.73m2 Kidney Failure < 15 mL/min/1.73m2 *Relative to young adult level If -Niuean multiply value by 1.16. Estimated glomerular filtration [...] ORDERABLES F inal Result Performing Organization Address City/[facility]/ZIP Co de Phone Number DAISY MAC (LI) 1 [facility] Department [place] [address] * Hepatitis panel, acute (10/07/2017 10:29 AM CDT) Hep A IgM Negative Negative [facility] ([facility]) Comment:Testing performed by : [facility], [address] [place] [address], [address] Hep B core IgM Negative Negative [facility] ([facility]) Comment:Testing performed by : [facility], [address] [place] [address], [address] Hep C Ab Negative Negative [facility] ([facility]) Comment:Testing performed by : [facility], [address] [place] [address], [address] HepBsAg Negative Negative [facility] ([facility]) Comment:Testing performed by : [facility], [address] [place] [address], [id number] Blood specimen (specimen) 10/07/2017 10:29 AM CDT 10/07/2017 6:17 PM CDT Narrative [facility] ([place]) - 10/07/2017 8:16 PM CDT Nick Joyce MD LAB MICROBIOLOGY - GEN ERAL ORDERABLES Final Result Performing Organization Address City/[facility]/ZIP Co de Phone Number DAISY MAC (LI) 1 [facility] Department [place] [address] * DIABETES FOOT EXAM (10/02/2017) Diabetic Foot Exam Unknown [facility] Provider HEALTH MAINTENANCE Final Result from Last 3 Months or Most Recently Relevant to Health Maintenance Insurance [address] CHOICE PLUS [address] CHOICE PLUS [address] CHOICE PLUS Advance Directives For more information, please contact: [phone] * Full Code (Latest Code Status on File) Date Activated Date Inactivated Comments 10/07/2017 6:11 AM 10/07/2017 9:04 PM Care Teams Stencil Typist Relationship Specialty Start Date End Date Mathew Gibbons MD PCP - General Family Practice 07/19/22 Chico Gil MD Consulting Physician Neurology 10/07/17
--- OUTSIDE RECORDS SUMMARY | 2024-09-05 11:43 | XMS_ITS | Clinical Summary ---
Author Organization [facility] Address [address] [address] Phone Care Team Providers Care Stone Polisher Hand Name Role Phone Marie Chavez MD Primary [...] Telephone [facility] [address] [place] [address] Marie Chavez MD Follow-up; Letter [...] Comments Blood Pressure 113/72 07/10/2018 8:14 AM BOARD MIXER TENDER Pulse 79 07/10/2018 8:14 AM BOARD MIXER TENDER Temperature 36 C (96.8 F) 07/10/2018 8:14 AM BOARD MIXER TENDER Respiratory Rate 14 07/10/2018 8:14 AM BOARD MIXER TENDER Oxygen Saturation 99% 07/10/2018 8:14 AM BOARD MIXER TENDER room air Inhaled Oxygen Concentration - - Weight 64.9 kg (143 lb) 07/10/2018 6:13 AM BOARD MIXER TENDER Height 160 cm (5' 3 ) 07/10/2018 6:13 AM BOARD MIXER TENDER Body Mass Index 25.33 07/10/2018 6:13 AM BOARD MIXER TENDER Plan of Treatment Health Maintenance Due Date [...] patient's age to complete this topic Insurance [address] Care Teams Stone Polisher Hand Relationship Specialty Start Date End Date Marie Chavez MD [address] [place] [id number] PCP - General Family Medicine 06/23/18
--- OUTSIDE RECORDS SUMMARY | 2024-09-05 11:43 | XMS_ITS | Continuity of Care Document ---
Author Organization [facility] Address [address] [place] [address] Phone Care Team Providers Care Tax Compliance Representative Name Role Phone Minesh Damon MD Unavailable Unavailable Advance Directives Directive Yes / No Effective Date File Name No Information Encounters Encounter Description Practice Location Reason(s) For Visit Diagnoses Date Provider Providers Copied on Encounter [facility], [address], [place], [place], [id number], tel:[phone] Conversion Department No Information [facility]. [address] , [address], [place], [place], [id number], [place]. tel:[phone] [facility], [address], [place], [place], [address], tel:[phone] Conversion Department DMI WO CMP NT [facility]. [address] , [address], [place], [place], [id number], [place]. tel:[phone] Family History Family Member Type Diagnosis Age [...]
--- OUTSIDE RECORDS SUMMARY | 2024-09-05 11:43 | XMS_ITS | Clinical Summary ---
Author Organization [facility] Address [address] [place] [address] Phone Care Team Providers Care Project Assistant Name Role Phone JENN MERINO, SALO Parrish APRN Primary Care Provider [phone] Reason for Visit and Chief Complaint The Chief Complaint is: FRIDAY PT HAS HEADACHE, CHILLS BODY ACHES, AND SCRATCHY THROAT. 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 Patient advised that they may return to work/school when fever free for 24 hours and symptoms have improved. Call with development of additional or worsening symptoms. Go to ED with severe respiratory symptoms. - Last Documented On 08/09/2020 11:38AM ; [facility] Assessments Includes: Assessments from this encounter No Assessments Recorded Medical Equipment - Implanted Devices Includes: Current Devices No Medical Equipment Recorded Medications Includes: Medications discussed during this encounter and other current Medications Current Medications (continue as prescribed) Cephalexin 500 MG Oral Capsule 07/25/2020 Provider: Diagnosis: Last Documented On 08/09/2020 10:52AM By Naida ESPINAL ; [facility] Contour Next Test In Vitro Strip 07/21/2020 Provider : KATHERIN RAMÍREZ MD Diagnosis: Last Documented On 08/09/2020 10:52AM By Naida ESPINAL ; [facility] HumaLOG 100 UNIT/ML Subcutaneous Solution 07/21/2020 Provider: KATHERIN RAMÍREZ MD Diagnosis: Last Documented On 08/09/2020 10:52AM By Naida ESPINAL ; [facility] Albuterol Sulfate HFA 108 (9 0 Base) MCG/ACT Inhalation Aerosol Solution 03/14/2020 Provider: Diagnosis: Last Documented On 08/09/2020 10:52AM By Naida ESPINAL ; [facility] Medications Administered Includes: Administered Medications from this encounter No Administered Medications Recorded Vital Signs Includes: Vital Signs from this encounter Vital Name 08/09/2020 10:53A Pulse Rate-Sitting (bpm) 69 Temp-Oral (F) 98.5 Oxygen Saturation (%) 97 Last Documented: On 08/09/2020 10:53A M ; [facility] Results Includes: Results discussed during this encounter Rapid COVID Test [facility] Ordered by EVERTON MCDANIELS on 07/15 Collected: Reported: 08/09/2020 11:06 Last Documented On 11:06AM ; [facility] Reviewed on 08/09/2020; All test results are final unless otherwise noted. Rapid COVId NEG N (Normal) Last Documented On 11:06AM ; [facility] Int. QC Acceptable N (Normal) Last Documented On 11:06AM ; [facility] Lot # and Exp. Date [id number] 10/16/2020 N (Normal) Last Documented On 11:06AM ; [facility] History of Present Illness Includes: History of [...] instruction.~ Last Documented On 1 11:34AM ; [facility] plan of care reviewed and agreed to Last Documented On 1 11:34AM ; [facility] patient to call if symptoms worsen or not improved to update patient's status as needed Last Documented On 1 11:34AM ; [facility] review of medications documented 1160F Last Documented On 1 10:53AM ; [facility] Medical History Includes: Medical History addressed during this encounter Description Last Updated No exposure to a contagious disease 07/15 Last Documented On 1 11:38AM ; [facility] Not taking OTC medications 08/09/2020 Last Documented On 1 11:38AM ; [facility] Family History Includes: Family History addressed [...] Check-Out Time Diagnosis SICK VISIT EVERTON PARDO-C [facility] 1 11:00AM 11:13AM Insurance Includes: Active Insurance Policies Plan Name Member ID Group # Subscriber Relationship Effect sharon Dates - R [id number] SHU MATHEWS Clinical Notes Includes: Clinical Notes from this encounter No Clinical Notes Recorded
--- OUTSIDE RECORDS SUMMARY | 2024-09-05 11:44 | XMS_ITS ---
Author Organization [facility] Address [address] [place] [address] Phone Care Team Providers Care Document Control Coordinator Name Role Phone JENN MERINO, SALO Parrish APRN Primary Care Provider [phone] Plan of Treatment Findings Encounter Date Continue current medication SICK VISIT with RENE PARDO-Flex 08/09/2020 Last Documented On 1 11:38AM ; [facility] The options include close observation SI CK VISIT with EVERTON PARDO-Flex 08/09/2020 Last Documented On 1 11:38AM ; [facility] Assessments Includes: Assessments for all patient encounters No Assessments Recorded Medical Equipment - Implanted Devices Includes: Current and historical Devices No Medical Equipment Recorded Medications Includes: Current and historical Medications Current Medications (continue as prescribed) Cephalexin 500 MG Oral Capsule 07/25/2020 Provider: Diagnosis: Last Documented On 08/09/2020 10:52AM By Naida ESPINAL ; [facility] Contour Next Test In Vitro Strip 07/21/2020 Provider : KATHERIN RAMÍREZ MD Diagnosis: Last Documented On 08/09/2020 10:52AM By Naida ESPINAL ; [facility] HumaLOG 100 UNIT/ML Subcutaneous Solution 07/21/2020 Provider: KATHERIN RAMÍREZ MD Diagnosis: Last Documented On 08/09/2020 10:52AM By Naida ESPINAL ; [facility] Albuterol Sulfate HFA 108 (9 0 Base) MCG/ACT Inhalation Aerosol Solution 03/14/2020 Provider: Diagnosis: Last Documented On 08/09/2020 10:52AM By Naida ESPINAL ; [facility] Medications Administered Includes: Administered Medications in patient's chart No Administered Medications Recorded Results Includes: Results from 09/05/2023 through 09/05/2024 No Results Recorded For Specified Dates History of Present Illness History of Present Illness not supported for this document type No History of Present Illness Recorded Social History No Social History Recorded - Smoking Status Unknown Medical History Includes: Medical History in patient's chart Description Last Updated No exposure to a contagious disease 07/15 Last Documented On 1 11:38AM ; [facility] Not taking OTC medications 08/09/2020 Last Documented On 1 11:38AM ; [facility] Family History Includes: Family History in patient's [...] Subscriber Relationship Effect sharon Dates 1 - [facility] [id number] SHU MATHEWS Clinical Notes Includes: Signed Clinical Notes starting from 08/02/2022 No Clinical Notes Recorded
--- OUTSIDE RECORDS SUMMARY | 2024-09-05 11:44 | XMS_ITS ---
Care Plan - [facility] Created on: September 05, 2024 REID ZHANNA Leblanc : 1995 Sex: Male Author Organization [facility] Address [address] [place] [address] Phone Care Team Providers Care Gasket Inspector Name Role Phone JENN MERINO, SALO Parrish APRN Primary Care Provider [phone]
--- OUTSIDE RECORDS SUMMARY | 2024-09-05 11:44 | XMS_ITS | Encounter Summary ---
Author Organization [facility] Address [address] [place] [address] Phone Care Team Providers Care Reverse Logistics Analyst Name Role Phone Marie Chavez MD Primary Care Provider Nick Joyce MD Unavailable Glenn Juarez MD Unavailable [phone] Chico Gil MD Unavailable Emerita Bender NP Primary Care Provider [phone] Mathew Gibbons MD Primary Care Provider [phone] Encounter Details Date Type Department Care Team (Late st Contact Info) Description 10/10/2017 Orders Only [facility] ProviderFlorecita MD [address] [place] [address] Social History Tobacco Use Types Packs/Day Years Used Date Smoking Tobacco: Never Smokeless Tobacco: Never Alcohol Use Standard Drinks/Week Comments No 0 (1 standard drink = 0.6 oz pur e alcohol) Sex and Gender Information Value Date Recorded Sex Assigned at Not on file 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 Gender Identity Not on file Sexual Orientation [...] documented as of this encounter Care Teams Reverse Logistics Analyst Relationship Specialty Start Date End Date Marie Chavez MD PCP - General 10/11/16 04/20/19 Emerita Bender NP [address] [place] [address] [place] [address] PCP - General Family Medicine 04/21/19 07/18/22 Mathew Gibbons MD [address] [place] [address] [place] [address] PCP - General Family Practice 07/19/22 Ncik Joyce MD Consulting Physician Medical Oncology 10/07/17 04/20/19 Glenn Juarez MD [address] [place] [address] [place] [address] Consulting Physician Endocrinology 10/07/17 07/18/22 Chico Gil MD [address] [facility] [address] [place], [place] [id number] Consulting Physician Neurology 10/07/17 documented as of this encounter
--- OUTSIDE RECORDS SUMMARY | 2024-09-05 11:44 | XMS_ITS | Continuity of Care Document ---
Author Organization [facility] Address [address] [place] [address] [place] [address] Phone Care Team Providers Care Prep Manager Name Role Phone Odin Wan MD Unavailable Unavailable Allergies, Adverse Reactions, Alerts Substance Reaction Status Criticality No Known Allergies Active No Inform ation Medications Medication Instructions Dosage Effective Dates (start - stop) Status Comments Humalog U-100 Insulin 100 unit/mL subcutaneous cartridge inject by subcutaneous route per prescriber's instructions. Insulin dosing requires individualization. 0.00 - Active Lantus Solostar U-100 Insulin 100 unit/mL (3 mL) subcutaneous pen inject by subcutaneous route as per insulin protocol 0.00 - Active Procedures Procedure Date Special Eye Evaluation Office/outpatient Visit, [facility] Advance Directives Directive Yes / No Effective Date File Name No Information Encounters Encounter Description Practice Location Reason(s) For Visit Diagnoses Date Provider Providers Copied on Encounter Office/outpa tient Visit, [facility], [address], [place], [place], [address], [place] tel:[phone] [place] Professional evaluation (chief complaint) Optic cupping of both eyes [address] [facility] [address], [place], [place], [id number], [place]. tel:[phone] Specialist: Nasra Carbajal MD, [address] [place], [address]. tel:[phone] t: Dustin Rosas OD, [address] [place], [place], [address]. tel:[phone] Provider: Marie Chavez MD, [address] [facility], [address], [place], [address]. tel:[phone] Family History Family Member Type Diagnosis Age At Onset No Information Payers Payer name Insurance type Covered alliance party ID Tomasa shen(s) [facility] CI [id number] Social History Type Description Quantity Date Captured [...] lens wearer. Patient states he goes to [place] for contacts and diabetic exam. Patient has [...] lens wearer. Patient states he goes to [place] for contacts and diabetic exam. Patient has [...]
--- OUTSIDE RECORDS SUMMARY | 2024-09-05 11:44 | XMS_ITS | Data Portability ---
Author Organization [facility] [employer], Main Office Address [address] [place] [address] Care Team Providers Care Fiber Optic Technician Name Role Phone AIYANA EMERY Technical Aide [phone] Assessment Encounter Date Assessment Date Assessment LastModified [...] patient was seen. Not available 08/11/2024 14:18:57 08/31/2024 08/31/2024 This note is dictated and transcribed by [employer]. Linen Room Houseperson variances may occur. Despite proofreading, typographical errors may occur. Occasional wrong-word or 'cqlrk-[id number]' substitutions may have occurred due to the inherent limitations of voice recording. Read the chart carefully and recognize, using context, where substitutions have occurred. Not available 09/01/2024 09:41:55 Plan of Treatment Reminders Order Date Submit Date Provider Last Modified By Organization Details Last Modified Time Details Appointments None recorded. Lab None recorded. Referral None recorded. Procedures None recorded. Surgeries None recorded. Imaging MRI, ankle, w/o contrast 2024 025 [facility], [address], [place], [address], 14:02:20 XR, ankle, 3 or more view 2024 025 [email or web address] [facility] [place], [address], [address], [place], [address], 15:06:07 Medication Orders None recorded. Patient TargetsNo targets recorded. Patient Instructions Encounter Date Encounter Id Patient Instructions Last Modified By Organization Details Last Modified Time 07/27/2024 [id number] learning about rice (rest, ice, compression, and elevation) [place] [id number] Not available 07/27/2024 15:06:25 08/11/2024 [id number] learning about rice (rest, ice, compression, and elevation) [place] [id number] Not available 08/11/2024 14:19:52 Reason for Referral None Reported. Results Created Date Observation Date Name Description Value Unit Range Abnormal Flag Note LastModifiedBy Organization Detail LastModifiedTime 07/27/19 25 XR, ankle , 3 or more view No observ ation record ed. [email or web address] [facility] Pod[facility] [place] [address], [address], [place], [address], 07/27/2024 15:04:52 08/31/19 25 08/27/2024 MRI, ankle , w/o contr ast No observ ation record ed. [email or web address] [facility] [address], [place], [address], 08/31/2024 14:40:05 Result Notes None recorded. Problems Name Problem SNOMED Code Status Onset Date Resolution Date Notes Provider Name and Address Organization Details Recorded Time Acute ankle pain 4844814833775 5 Active 2024 Sudheer Torres DPM [address] [facility], [address], [place], [address], [facility] [employer] [facility] 15:04:25 Sprain of right ankle 8614896199099 9105 Active 2024 Sudheer Torres DPM [address], [address], [place], [address], [facility] [employer] [facility] 15:04:59 Osteochondr al defect of talus 567562766 Active 2024 Sudheer Torres DPM [address], [address], [place], [address], [facility] [employer] [facility] 14:19:13 Problem Notes None recorded. Procedures Surgical History None recorded. Imaging Results Imaging Date Name Status LastModified by Organiz ation Details LastModified Time 07/27/2024 XR, ankle, 3 or more view completed [address] [facility] [place] [address] [facility], [address], [place], [address], 07/27/2024 15:04:52 08/27/2024 MRI, ankle, w/o contrast completed [address], [place], [address], 08/31/2024 14:40:05 Procedure Notes None recorded. Medical Equipment None [...] Updated DateTime 07/27/2024 190.5 cm 21.9 kg/m2 83857.66 g Kandis [email or web address] [email or web address] [facility] [employer] 07/27/2024 15:21:06 Date Recorded Body height Body mass index (BMI) Body weight Body temperature Respiratory rate Heart rate Oxygen saturation Oxygen saturation in Arterial blood by Pulse oximetry Systolic blood pressure Diastolic blood pressure Provider Name and Address Organization Details Last Updated DateTime 190.5 cm 21.9 kg/m2 60612.6 6 g 97.6 [degF] 14 /min 75 /min 98 % 98 % 130 mm[Hg] 90 mm[Hg] Nusrat Connors [email or web address] [facility] [employer] 14:04:18 Date Recorded Body height Body mass index (BMI) Body weight Heart rate Respiratory rate Oxygen saturation Oxygen saturation in Arterial blood by Pulse oximetry Systolic blood pressure Diastolic blood pressure Provider Name and Address Organization Details Last Updated DateTime 190.5 cm 21.9 kg/m2 49749.6 6 g 80 /min 14 /min 99 % 99 % 146 mm[Hg] 96 mm[Hg] Kandis Mckeon [employer] 14:14:48 Social History Question Answer Notes LastModified by Organizat ion Details LastModified Time Tobacco Smoking Status Never Smoker Kandis [email or web address] [facility] [employer] 07/27/2024 15:22:02 What Is Your Level Of [...] SNOMED-CT Code Diagnosis ICD10 Code Diagnosis Note [id number] Sudheer Torres DPM [facility] Podiatry [address], [address] [address] 07/27/2024 14:38:58 08/09/2024 09:28:57 Acute ankle pain 4891314068 9105 M25.579 as belowrice therapymin imal activities follow up in 2 weeks Sprain of right ankle 11 69348407 6940587 S93.401A [id number] BRITTANY [facility] [address], [address] [address] 08/11/2024 13:47:23 08/11/2024 16:49:27 Acute ankle pain 4102957009 9105 M25.579 as belowrice therapymin imal activities follow up in 2-3 weeks Sprain of right ankle 11 29477754 0415353 S93.401A obtain MRI rule out OCDcontinu e rice therapymin imal activityno work yetcontinu e cam boot Osteochond ral defect of talus 161627910 M21.6X9 as above [id number] Sudheer Torres DPM [facility] [address] [address] 08/31/2024 14:01:52 09/01/2024 14:25:38 Sprain of right ankle 7040506373 2413944 S93.401A obtain MRI-- Negative for osteochond ral defect positive for thickening of the capsulecon tinue rice therapyRx ankle brace lace-upmay return to work- release todayfollo w-up as needed Health Concerns Section Related Observation LastModified by Organization Detai ls LastModified Time None Recorded Concern Status LastModified by Organization Details LastModified Time None Recorded Advance Directives Directive None Recorded Payers Encounter Date Sequence Insurance Name Policy Number Policy Ferrera Covered Member ID Ferrera Member ID Guarantor Name 07/27/2024 [employer] [facility] Cory Mandel 08/11/2024 [employer] [facility] Cory Mandel 08/31/2024 [employer] [facility] Cory Mandel Notes Date Note Type Note [...] to the pain he did go to [facility] had x-rays brought these for review he was found to not have any significant fractures. Patient states the pain is worse when he is standing and walking. Patient denies any other complaints. Patient states he has been taking ibuprofen and Tylenol to control pain. Sudheer Torres, BRITTANY [address] [facility], [address], [place], [address], [facility] [employer] [facility] 07/27/2024 17:00:13 08/11/2024 text/html . Patient is [...] any other complaints. Sudheer Torres DPM [address], [address], [place], [address], [employer] 08/11/2024 15:28:19 08/31/2024 text/html . Patient is a 28-year-old male who returns the office for follow-up on right ankle sprain he underwent an MRI which was negative for any acute injury he has some thickening of the capsule. Patient states he continues to slowly improve. I recommended that he be transitioned into an ankle brace and he may return to work at this time. Patient may continue at-home physical therapy exercises. Patient denies any other complaints. Sudheer Torres DPM [address], [address], [place], [address], [employer] 09/01/2024 09:42:54
--- OUTSIDE RECORDS SUMMARY | 2024-09-05 11:45 | XMS_ITS | Continuity of Care Document ---
Author Organization [facility] Address [address] [place] [address] [place] [address] Phone Care Team Providers Care Certified Physician'S Assistant Name Role Phone Odin Wan MD Unavailable [...] Procedure Date Special Eye Evaluation Office/outpatient Visit, [facility] Advance Directives Directive Yes / No Effective Date File Name No Information Encounters Encounter Description Practice Location Reason(s) For Visit Diagnoses Date Provider Providers Copied on Encounter Office/outpa tient Visit, [facility], [address], [place], [place], [address], [place] tel:[phone] [facility] [place] Professional evaluation (chief complaint) Optic cupping of both eyes [address] [facility] [address], [place], [place], [address], [place]. tel:[phone] Specialist: Nasra Carbajal MD, [address] [place], [address]. tel:[phone] t: Dustin Rosas OD, [address] [place], [place], [address]. tel:[phone] Provider: Marie Chavez MD, [address] [facility], [address], [place], [address]. tel:[phone] Family History Family Member Type Diagnosis Age At Onset No Information Payers Payer name Insurance type Covered republican ID Tomasa shen(s) [facility] CI [id number] Social History Type Description Quantity Date Captured [...] lens wearer. Patient states he goes to [place] for contacts and diabetic exam. Patient has [...] lens wearer. Patient states he goes to [place] for contacts and diabetic exam. Patient has [...]
--- OUTSIDE RECORDS SUMMARY | 2024-09-05 11:45 | XMS_ITS ---
Author Organization [facility] Address [address] [place] [address] Phone Care Team Providers Care Rake Operator Name Role Phone JENN MERINO, SALO Parrish APRN Primary Care Provider [phone] Plan of Treatment Findings Encounter Date Continue current medication SICK VISIT with RENE PARDO-Felx 08/09/2020 Last Documented On 1 11:38AM ; [facility] The options include close observation SI CK VISIT with EVERTON PARDO-Flex 08/09/2020 Last Documented On 1 11:38AM ; [facility] Assessments Includes: Assessments for all patient encounters No Assessments Recorded Medical Equipment - Implanted Devices Includes: Current and historical Devices No Medical Equipment Recorded Medications Includes: Current and historical Medications Current Medications (continue as prescribed) Cephalexin 500 MG Oral Capsule 07/25/2020 Provider: Diagnosis: Last Documented On 08/09/2020 10:52AM By Naida ESPINAL ; [facility] Contour Next Test In Vitro Strip 07/21/2020 Provider : KATHERIN RAMÍREZ MD Diagnosis: Last Documented On 08/09/2020 10:52AM By Naida ESPINAL ; [facility] HumaLOG 100 UNIT/ML Subcutaneous Solution 07/21/2020 Provider: KATHERIN RAMÍREZ MD Diagnosis: Last Documented On 08/09/2020 10:52AM By Naida ESPINAL ; [facility] Albuterol Sulfate HFA 108 (9 0 Base) MCG/ACT Inhalation Aerosol Solution 03/14/2020 Provider: Diagnosis: Last Documented On 08/09/2020 10:52AM By Naida ESPINAL ; [facility] Medications Administered Includes: Administered Medications in patient's [...] 07/15 Last Documented On 1 11:38AM ; [facility] Not taking OTC medications 08/09/2020 Last Documented On 1 11:38AM ; [facility] Family History Includes: Family History in patient's [...] Subscriber Relationship Effect sharon Dates 1 - [facility] [id number] SHU MATHEWS Clinical Notes Includes: Signed Clinical Notes starting from 08/02/2022 No Clinical Notes Recorded
--- OUTSIDE RECORDS SUMMARY | 2024-09-05 11:45 | XMS_ITS | Clinical Summary ---
Author Organization [facility] Address [address] [place] [address] Phone Care Team Providers Care Arbor Press Operator Name Role Phone JENN MERINO, SALO Parrish APRN Primary Care Provider [phone] Reason for Visit and Chief Complaint The Chief Complaint is: FRIDAY PT HAS HEADACHE, CHILLS BODY ACHES, AND SCRATCHY THROAT. 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 Patient advised that they may return to work/school when fever free for 24 hours and symptoms have improved. Call with development of additional or worsening symptoms. Go to ED with severe respiratory symptoms. - Last Documented On 08/09/2020 11:38AM ; [facility] Assessments Includes: Assessments from this encounter No Assessments Recorded Medical Equipment - Implanted Devices Includes: Current Devices No Medical Equipment Recorded Medications Includes: Medications discussed during this encounter and other current Medications Current Medications (continue as prescribed) Cephalexin 500 MG Oral Capsule 07/25/2020 Provider: Diagnosis: Last Documented On 08/09/2020 10:52AM By Naida ESPINAL ; [facility] Contour Next Test In Vitro Strip 07/21/2020 Provider : KATHERIN RAMÍREZ MD Diagnosis: Last Documented On 08/09/2020 10:52AM By Naida ESPINAL ; [facility] HumaLOG 100 UNIT/ML Subcutaneous Solution 07/21/2020 Provider: KATHERIN RAMÍREZ MD Diagnosis: Last Documented On 08/09/2020 10:52AM By Naida ESPINAL ; [facility] Albuterol Sulfate HFA 108 (9 0 Base) MCG/ACT Inhalation Aerosol Solution 03/14/2020 Provider: Diagnosis: Last Documented On 08/09/2020 10:52AM By Naida ESPINAL ; [facility] Medications Administered Includes: Administered Medications from this encounter No Administered Medications Recorded Vital Signs Includes: Vital Signs from this encounter Vital Name 08/09/2020 10:53A Pulse Rate-Sitting (bpm) 69 Temp-Oral (F) 98.5 Oxygen Saturation (%) 97 Last Documented: On 08/09/2020 10:53A M ; [facility] Results Includes: Results discussed during this encounter Rapid COVID Test [facility] Ordered by EVERTON MCDANIELS on 07/15 Collected: Reported: 08/09/2020 11:06 Last Documented On 11:06AM ; [facility] Reviewed on 08/09/2020; All test results are final unless otherwise noted. Rapid COVId NEG N (Normal) Last Documented On 11:06AM ; [facility] Int. QC Acceptable N (Normal) Last Documented On 11:06AM ; [facility] Lot # and Exp. Date [id number] 10/16/2020 N (Normal) Last Documented On 11:06AM ; [facility] History of Present Illness Includes: History of [...] Documented On 1 11:34AM ; [facility] plan of care reviewed and agreed to Last Documented On 1 11:34AM ; [facility] patient to call if symptoms worsen or not improved to update patient's status as needed Last Documented On 1 11:34AM ; [facility] review of medications documented 1160F Last Documented On 1 10:53AM ; [facility] Medical History Includes: Medical History addressed during this encounter Description Last Updated No exposure to a contagious disease 07/15 Last Documented On 1 11:38AM ; [facility] Not taking OTC medications 08/09/2020 Last Documented On 1 11:38AM ; [facility] Family History Includes: Family History addressed [...] Diagnosis SICK VISIT EVERTON PARDO-C [facility] 1 11:00AM 11:13AM Insurance Includes: Active Insurance Policies Plan Name Member ID Group # Subscriber Relationship Effect sharon Dates - R [id number] SHU MATHEWS Clinical Notes Includes: Clinical Notes from this encounter No Clinical Notes Recorded
--- OUTSIDE RECORDS SUMMARY | 2024-09-05 11:45 | XMS_ITS | Continuity of Care Document ---
Author Organization [facility] Address [address] [place] [address] Phone Care Team Providers Care Utility Aircrewman Name Role Phone Minesh Damon MD Unavailable Unavailable Advance Directives Directive Yes / No Effective Date File Name No Information Encounters Encounter Description Practice Location Reason(s) For Visit Diagnoses Date Provider Providers Copied on Encounter [facility], [address], [place], [place], [id number], tel:[phone] Conversion Department No Information Marisol Edge. [address] , [address], [place], [place], [address], [place]. tel:[phone] [facility], [address], [place], [place], [address], tel:[phone] Conversion Department DMI WO CMP NT [facility] Edge. [address] , [address], [place], [place], [id number], [place]. tel:[phone] Family History Family Member Type Diagnosis Age At Onset No Information Payers Payer name Insurance type Covered constitution party ID Authoriza tion(s) No Information Social [...]
[2024-09-05 11:46] VITALS: BP 146/89; PULSE 90; RESP 16; TEMP 37.3; O2SAT 98
[2024-09-05 12:06] LABS: EDCOVIDSCREEN Positive (Negative); EDINFLUASCREEN Negative (Negative); EDINFLUBSCREEN Negative (Negative)
--- NOTE | 2024-09-05 12:08 | ED.GENADULT ---
HPI - General Adult General Chief complaint: Upper Respiratory Infection Stated complaint: rattling in chest,fever Patient presents for evaluation of sick symptoms for last 4 days. He initially had sinus congestion and drainage. He now has a cough, shortness of breath, generalized body aches, chills, fatigue, hot flashes associated with physical exertion and sore throat 2/2 coughing. No nausea, vomiting or diarrhea. He has been taking mucinex for his symptoms. He does not smoke. He has a respiratory condition that sounds like involves partial tracheal collapse, for which he is under the care of pulmonology and has a steroid inhaler. His recently had mild respiratory symptoms. He has a history of diabetes and has an insulin pump. His BS tend to run between 150-180. His blood sugars two days ago were higher but have since improved. Related Data Home Medications ?Medication ?Instructions ?Recorded ?Confirmed ?Last Taken ?Type insulin lispro 100 unit/mL 07/24/24 Unknown History subcutaneous cartridge (Humalog U-100 Insulin) budesonide-formoterol HFA 160 inhalation 09/05/24 Unknown History mcg-4.5 mcg/actuation aerosol inhaler (Symbicort) Allergies Allergy/AdvReac Type Severity Reaction Status Date / Time No Known Allergies Allergy Verified 09/05/24 11:50 Review of Systems Review of Systems: CONSTITUTIONAL: Reports hot flashes with physical exertion. Reports chills and fatigue. Denies fever. EYES: Denies visual changes, redness, or discharge. ENT: Reports sinus congestion, nasal drainage, sore throat secondary to coughing. CARDIOVASCULAR: Denies chest pain, palpitations, or edema. RESPIRATORY: Reports cough, SOB and wheezing GASTROINTESTINAL: Denies abdominal pain, nausea, vomiting, or diarrhea. GENITOURINARY: Denies dysuria or hematuria. SKIN: Denies rash or itching. MUSCULOSKELETAL: Reports generalized body aches NEUROLOGIC: Denies headache, numbness, dizziness, or weakness. PSYCHIATRIC: Denies anxiety or depression. [facility] Past Medical History Medical History Hypertension Anxiety and depression Hyperlipidemia Diabetes Type I juvenile diabetic Surgical History Surgical History No pertinent past surgical history Family History Family History Mother Hypertension Grandparent Diabetes mellitus Hypertension Social History Social History Smoking status: Never smoker Alcohol intake: never Substance use: never Substance use type: does not use Lack of Transportation: No Lack of Food: Never True Current Housing: I Have Housing Concerned About Future Housing: No Difficulty Paying Gas/Electric Bills: No Difficulty Paying for Meds: No Currently Unemployed: No Education: High School Diploma/GED Difficulty w/ Childcare or Family Care: No Living arrangements: with family Gender identity (if verbalized by the patient): Male Sexual Orientation (if Verbalized by the Patient): Straight or Heterosexual Agree to blood products: Yes Exam Narrative: GENERAL: Well-appearing, well-nourished, and in no acute distress. HEAD: Normocephalic, atraumatic. EYES: PERRLA and EOMI. ENT: Nares clear, no rhinorrhea or epistaxis. Mucous membranes moist. Oropharynx without tonsillar hypertrophy exudate or other lesions. Bilateral TMs pearly jerez nonbulging NECK: Supple. No adenopathy or masses. No carotid bruits or JVD CHEST: Wheezing noted in lung juan bilaterally HEART: Regular rate and rhythm. No murmur heard. Normal peripheral pulses. ABDOMEN: Soft, nontender, nondistended, normal active bowel sounds. EXTREMITIES: Normal range of motion. No edema. SKIN: Warm, dry, no rash. NEURO: No focal deficits. Alert and oriented x3. PSYCH: Normal mood and affect. Course Course Emergency Course: This is a 28 yr old male who presented for evaluation of respiratory symptoms. COVID positive. Influenza and CXR negative. He has taken steroids in the past and tolerated well. He can adjust his insulin accordingly and monitor his diet. Through shared decision making opted to dc with prednisone. Increase hydration. OTC meds for symptom management. Follow up with primary provider. Go to the ER for worsening symptoms. Patient in agreement with plan of care. Level of Care: Express Care Visit Vital Signs Vital signs: Vital Signs Temperature 37.3 C 09/05/24 11:46 Pulse Rate 90 09/05/24 11:46 Respiratory Rate 16 09/05/24 11:46 Blood Pressure 146/89 H 09/05/24 11:46 Pulse Oximetry 98 09/05/24 11:46 Oxygen Delivery Room Air 09/05/24 11:46 Temperature 37.3 C 09/05/24 11:46 Pulse Rate 90 09/05/24 11:46 Respiratory Rate 16 09/05/24 11:46 Blood Pressure 146/89 H 09/05/24 11:46 Pulse Oximetry 98 09/05/24 11:46 Oxygen Delivery Room Air 09/05/24 11:46 Medical Decision Making Vital Signs Vital Signs: Vital Signs Temperature 37.3 C 09/05/24 11:46 Pulse Rate 90 09/05/24 11:46 Respiratory Rate 16 09/05/24 11:46 Blood Pressure 146/89 H 09/05/24 11:46 Pulse Oximetry 98 09/05/24 11:46 Oxygen Delivery Room Air 09/05/24 11:46 Temperature 37.3 C 09/05/24 11:46 Pulse Rate 90 09/05/24 11:46 Respiratory Rate 16 09/05/24 11:46 Blood Pressure 146/89 H 09/05/24 11:46 Pulse Oximetry 98 09/05/24 11:46 Oxygen Delivery Room Air 09/05/24 11:46 Lab Data Labs: Lab Results 09/05/24 Range/Units 11:50 POC Influenza A Ag Negative (Negative) POC Influenza B Ag Negative (Negative) POC SARS CoV-2 Ag Positive (Negative) Imaging Data Radiologist's impression: EXAMINATION: XR chest 2V DATE: 09/05/2024 12:14 INDICATION: Cough. TECHNIQUE: Frontal and lateral views of the chest were obtained. COMPARISON: Chest view right 02/16/24, chest CT 09/19/2023 FINDINGS: There is no pneumonia, pleural effusion, or pneumothorax. The heart size is normal. IMPRESSION: 1. No acute cardiopulmonary disease. Discharge Plan Discharge Clinical Impression: COVID Patient Disposition: Home, Self-Care Condition: Stable Instructions: Antibiotic Form, COVID-19 (Coronavirus Disease 2019) (ED) Additional Instructions: PLEASE MONITOR YOUR BLOOD SUGARS CLOSELY WHILE ON PREDNISONE Patient Language: Botswanan Prescriptions: New prednisone 50 mg tablet 50 mg PO DAILY Qty: 5 0RF No Action Humalog U-100 Insulin 100 unit/mL cartridge budesonide-formoterol [Symbicort] 160-4.5 mcg/actuation HFA aerosol inhaler INHALATION albuterol sulfate 90 mcg/actuation HFA aerosol inhaler 1 inh inhalation QID PRN (Reason: shortness of breath or wheezing) Qty: 6.7 0RF albuterol sulfate [Ventolin HFA] 90 mcg/actuation HFA aerosol inhaler 2 inh inhalation Q4H PRN (Reason: shortness of breath or wheezing) Qty: 8.5 1RF atorvastatin 20 mg tablet See Rx Instructions .ROUTE .COMPLEX Qty: 90 3RF Dose Instruction: TAKE 1 TABLET DAILY Rx Instructions: TAKE 1 TABLET DAILY (DME) Dexcom G6 Sensor Device See Rx Instructions .ROUTE .COMPLEX Qty: 9 3RF Dose Instruction: APPLY EVERY 10 DAYS Rx Instructions: APPLY EVERY 10 DAYS atorvastatin 20 mg tablet 20 mg PO DAILY Qty: 90 1RF losartan 25 mg tablet 12.5 mg PO DAILY Qty: 50 0RF (DME) Dexcom G6 Transmitter Device See Rx Instructions .ROUTE .COMPLEX Qty: 1 3RF Dose Instruction: USE EVERY 3 MONTHS Rx Instructions: USE EVERY 3 MONTHS insulin lispro [Humalog U-100 Insulin] 100 unit/mL solution See Rx Instructions .ROUTE .COMPLEX Qty: 60 3RF Dose Instruction: USE UNDER THE SKIN DIRECTED FOR INSULIN PUMP SLIDING SCALE DOSE, MAXIMUM DAILY DOSE 60 UNITS Rx Instructions: USE UNDER THE SKIN DIRECTED FOR INSULIN PUMP SLIDING SCALE DOSE, MAXIMUM DAILY DOSE 60 UNITS hydroxyzine HCl 50 mg tablet See Rx Instructions .ROUTE .COMPLEX Qty: 90 0RF Dose Instruction: TAKE 1 TABLET BY MOUTH FOUR TIMES DAILY NEEDED FOR ANXIETY OR PANIC Rx Instructions: TAKE 1 TABLET BY MOUTH FOUR TIMES DAILY NEEDED FOR ANXIETY OR PANIC escitalopram oxalate 10 mg tablet See Rx Instructions .ROUTE .COMPLEX Qty: 90 0RF Dose Instruction: TAKE 1 TABLET BY MOUTH DAILY Rx Instructions: TAKE 1 TABLET BY MOUTH DAILY Follow-up/Referrals: Eneida Badillo APRN [Primary Care Provider] - Stand Alone Forms: Work/School Release IP Time of Disposition: 12:52
== END 2024-09-05 12:57 | disposition home or self-care (01) ==
PROVIDERS: Emergency Provider Nurse Practitioner; PCP Nurse Practitioner Adult Health
DX: U07.1 COVID-19 (principal); I10 Essential (primary) hypertension; E10.9 Type 1 diabetes mellitus without complications; Z79.4 Long term (current) use of insulin; Z96.41 Presence of insulin pump (external) (internal); E78.5 Hyperlipidemia, unspecified; F41.9 Anxiety disorder, unspecified; F32.A Depression, unspecified
CPT/HCPCS: 71046; 87426; 87804; 99213; G0463

== ENCOUNTER 2024-10-29 09:53 | Outpatient (CLI) | payer OTHER, SELFPAY ==
--- OUTSIDE RECORDS SUMMARY | 2024-10-29 10:03 | XMS_ITS | Clinical Summary ---
Author Organization [facility] Address [address] [place] [address] Phone Care Team Providers Care Char House Supervisor Name Role Phone JENN MERINO, SALO Parrish APRN Primary Care Provider [phone] Reason for Visit and Chief Complaint The Chief Complaint is: FRIDAY PT HAS HEADACHE, CHILLS BODY ACHES, AND SCRATCHY THROAT. 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 Patient advised that they may return to work/school when fever free for 24 hours and symptoms have improved. Call with development of additional or worsening symptoms. Go to ED with severe respiratory symptoms. - Last Documented On 08/09/2020 11:38AM ; [facility] Assessments Includes: Assessments from this encounter No Assessments Recorded Medical Equipment - Implanted Devices Includes: Current Devices No Medical Equipment Recorded Medications Includes: Medications discussed during this encounter and other current Medications Current Medications (continue as prescribed) Cephalexin 500 MG Oral Capsule 07/25/2020 Provider: Diagnosis: Last Documented On 08/09/2020 10:52AM By Naida ESPINAL ; [facility] Contour Next Test In Vitro Strip 07/21/2020 Provider : KATHERIN RAMÍREZ MD Diagnosis: Last Documented On 08/09/2020 10:52AM By Naida ESPINAL ; [facility] HumaLOG 100 UNIT/ML Subcutaneous Solution 07/21/2020 Provider: KATHERIN RAMÍREZ MD Diagnosis: Last Documented On 08/09/2020 10:52AM By Naida ESPINAL ; [facility] Albuterol Sulfate HFA 108 (9 0 Base) MCG/ACT Inhalation Aerosol Solution 03/14/2020 Provider: Diagnosis: Last Documented On 08/09/2020 10:52AM By Naida ESPINAL ; [facility] Medications Administered Includes: Administered Medications from this encounter No Administered Medications Recorded Vital Signs Includes: Vital Signs from this encounter Vital Name 08/09/2020 10:53A Pulse Rate-Sitting (bpm) 69 Temp-Oral (F) 98.5 Oxygen Saturation (%) 97 Last Documented: On 08/09/2020 10:53A M ; [facility] Results Includes: Results discussed during this encounter Rapid COVID Test [facility] Ordered by EVERTON MCDANIELS on 07/15 Collected: Reported: 08/09/2020 11:06 Last Documented On 11:06AM ; [facility] Reviewed on 08/09/2020; All test results are final unless otherwise noted. Rapid COVId NEG N (Normal) Last Documented On 11:06AM ; [facility] Int. QC Acceptable N (Normal) Last Documented On 11:06AM ; [facility] Lot # and Exp. Date [id number] 10/16/2020 N (Normal) Last Documented On 11:06AM ; [facility] History of Present Illness Includes: [...] instruction.~ Last Documented On 1 11:34AM ; [facility] plan of care reviewed and agreed to Last Documented On 1 11:34AM ; [facility] patient to call if symptoms worsen or not improved to update patient's status as needed Last Documented On 1 11:34AM ; [facility] review of medications documented 1160F Last Documented On 1 10:53AM ; [facility] Medical History Includes: Medical History addressed during this encounter Description Last Updated No exposure to a contagious disease 07/15 Last Documented On 1 11:38AM ; [facility] Not taking OTC medications 08/09/2020 Last Documented On 1 11:38AM ; [facility] Family History Includes: Family History addressed during [...] Check-Out Time Diagnosis SICK VISIT EVERTON PARDO-C [facility] 1 11:00AM 11:13AM Insurance Includes: Active Insurance Policies Plan Name Member ID Group # Subscriber Relationship Effect sharon Dates - R [id number] SHU MATHEWS Clinical Notes Includes: Clinical Notes from this encounter No Clinical Notes Recorded
--- OUTSIDE RECORDS SUMMARY | 2024-10-29 10:03 | XMS_ITS | Clinical Summary ---
Author Organization [facility] Address [address] [address] Phone Care Team Providers Care Campaign Assistant Name Role Phone Marie Chavez MD Primary [...] daily (after meals). Use as directed Active Family History Medical History Relation Name Comments [...] Comments Blood Pressure 113/72 07/10/2018 8:14 AM MENTAL HEALTH NURSE Pulse 79 07/10/2018 8:14 AM MENTAL HEALTH NURSE Temperature 36 C (96.8 F) 07/10/2018 8:14 AM MENTAL HEALTH NURSE Respiratory Rate 14 07/10/2018 8:14 AM MENTAL HEALTH NURSE Oxygen Saturation 99% 07/10/2018 8:14 AM MENTAL HEALTH NURSE room air Inhaled Oxygen Concentration - - Weight 64.9 kg (143 lb) 07/10/2018 6:13 AM MENTAL HEALTH NURSE Height 160 cm (5' 3 ) 07/10/2018 6:13 AM MENTAL HEALTH NURSE Body Mass Index 25.33 07/10/2018 6:13 AM MENTAL HEALTH NURSE Plan of Treatment Health Maintenance Due Date Last Done Comments Hepatitis C Virus (HCV) Screening 1993 TdaP Immunization 1993 Hepatitis B Immunization (1 of 3 - 19+ 3-dose series) 2012 Influenza Immunization (#1) 2024 SARS-COV-2 Immunization (2023- season) 2024 07/01/2021, 10/04/2020, 09/12/2020 Respiratory Syncytial [...] patient's age to complete this topic Insurance [address] [place] [address] Care Teams Campaign Assistant Relationship Specialty Start Date End Date Marie Chavez MD [address] [place] [id number] PCP - General Family Medicine 06/23/18
--- OUTSIDE RECORDS SUMMARY | 2024-10-29 10:04 | XMS_ITS | Encounter Summary ---
Author Organization [facility] Address [address] [place] [address] Phone Care Team Providers Care Funeral Pre Arrangement Counselor Name Role Phone Marie Chavez MD Primary Care Provider Nick Joyce MD Unavailable Glenn Juarez MD Unavailable [phone] [place] Gil MD Unavailable Emerita Bender NP Primary Care Provider [phone] Mathew Gibbons MD Primary Care Provider [phone] Encounter Details Date Type Department Care Team (Late st Contact Info) Description 10/10/2017 Orders Only [facility] ProviderFlorecita MD [address] [place] [address] Social History Tobacco Use Types Packs/Day Years Used Date Smoking Tobacco: Never Smokeless Tobacco: Never Alcohol Use Standard Drinks/Week Comments No 0 (1 standard drink = 0.6 oz pur e alcohol) Sex and Gender Information Value Date Recorded Sex Assigned at Not on file Legal Sex 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 Gender Identity Not on file Sexual Orientation [...] documented as of this encounter Care Teams Funeral Pre Arrangement Counselor Relationship Specialty Start Date End Date Marie Chavez MD PCP - General 10/11/16 04/20/19 Emerita Bender NP [address] [place] [address] [place] [address] PCP - General Family Medicine 04/21/19 07/18/22 Mathew Gibbons MD [address] [place] [address] [place] [address] PCP - General Family Practice 07/19/22 Nick Joyce MD Consulting Physician Medical Oncology 10/07/17 04/20/19 Glenn Juarez MD [address] [place] [address] [place] [address] Consulting Physician Endocrinology 10/07/17 07/18/22 Chico Gil MD [address] [facility] [address] [place], [place] [id number] Consulting Physician Neurology 10/07/17 documented as of this encounter
--- OUTSIDE RECORDS SUMMARY | 2024-10-29 10:04 | XMS_ITS | Clinical Summary ---
Author Organization [facility] Medical Office Building B Address [address] [place] [address] Care Team Providers Care Application Support Engineer Name Role Phone Chico Gil MD Unavailable Mathew Gibbons MD Primary Care Provider [phone] Allergies No known active allergies Medications glucagon [...] mg tablet Active blood-glucose meter,continuous (Dexcom G6 Seal Mixing Operator) misc Use to monitor glucose levels 1 [...] mg total) by mouth daily 024 Active Symbicort 160-4.5 mcg/actuation inhaler Inhale 2 puffs 2 (two) times a day Rinse mouth with water after use. Do not swallow. 1 each Active insulin glargine (insulin glargine) 100 unit/mL vial for injection Inject 28 Units under the skin nightly 30 mL 1 022 2021 Discontinued budesonide-formo teroL (SYMBICORT) 160-4.5 mcg/actuation inhaler Inhale 2 puffs 2 (two) times a day 3 each 3 025 2024 Discontinued Symbicort 160-4.5 mcg/actuation inhaler Inhale 2 puffs 2 (two) times a day Rinse mouth with water after use. Do not swallow. 1 each 025 2024 Discontinued(R eorder) Active Problems Problem Noted Date Diagnosed Date Tracheomegaly 05/17/2024 Cough 03/25/2024 Gilbert's syndrome 04/21/2019 Type 1 diabetes mellitus with hyperglycemia 12/2018 Assessment & Plan (07/19/2022 3:15 PM CONSERVATION PLANNER): Diagnosed in 1998, at the age of [...] 04/21/2019 Assessment & Plan (09/03/2018 10:14 PM CONSERVATION PLANNER): Apply silvadene to ulcer. Apply twice daily [...] Encounters Date Type Department Care Team Description 10/25/2024 3:00 PM CDT Therapy [facility] Otolaryngology [address] [facility] 11th [place] [address] [place] [address] Gabi Garland, DOG FOOD SHREDDER OPERATOR Chronic cough (Primary Dx) 10/13/2024 10:20 AM CDT Therapy [facility] Otolaryngology [address] [facility] Medical Office Building [address] [place] [address] Marilu Rosario SLP Chronic cough 10/13/2024 10:20 AM CDT Office Visit [facility] ENT [address] [facility] Medical Office Building [address] [place] [address] Kaitlyn Smith MD Cough, unspecified type 10/07/2024 4:00 PM CDT Office Visit [facility] Pulmonary [address] [facility] Medical Office Building [address] [place] [address] Adiel Allen MD Tracheobronchomalacia (Primary Dx); Tracheomegaly; Moderate persistent asthma without complication 10/07/2024 2:53 PM CDT - 10/07/2024 11:59 PM CDT Hospital Encounter [facility] PFT Lab [address] [facility] Medical Office Building [address] [place] [address] Cough, unspecified type Discharge Disposition: Discharge to home or self care 09/28/[address] [facility] Pulmonary [facility] 8th [place] [address] [place] [id number] Agata Ventura RN 09/23/[address] [facility] Pulmonary [address] [facility] 8th [place] [address] [place] [address] Agata Ventura RN 09/23/[address] [facility] Pulmonary [facility] [address] [place] [address] Hawa Ulloa pa for budesonide-formoterol (Per cmm and express scripts no pa needed for budesonide symbicort palmer [id number]) from Last 3 Months Immunizations Immunization Administration Dates Next Due Influenza, Quadrivalent, Spl it, Intramuscular 08/15/2018 Influenza, Split 04/21/2012,03/29/2011 Influenza, Trivalent, IM (MDV) 04/13/2008,2006 Influenza, Unspecified 04/13/2020(Deferr ed: Patient Refused),08/15/2018 Meningococcal MCV4P (Menactra) 02/18/2008 Varicella 02/18/2008 Surgical History Surgery Date Site/Laterality Comments NO PAST SURGERIES ESOPHAGOGASTRODUODENOSCOPY BRONCHOSCOPY Medical History Medical History Date Comments Type 1 diabetes mellitus had DKA related to influenza Staph infection 2010 Family History Medical History Relation Name Comments Diabetes Maternal Grandfather Hypertension Mother Yany reyes Hypertension Other 1 Diabetes Other 2 Cancer Other 3 grandmother wit h bone marrow cancer Relation Name Status Comments Maternal Grandfather Mother Yany reyes Other 1 Other 2 Other 3 Social [...] on file Legal Sex Male 12:38 PM CONSERVATION PLANNER Gender Identity Not on file Sexual Orientation Not on file Obstetrics History Last Filed Vital Signs Vital Sign Reading Time Taken Comments Blood Pressure 120/80 10/13/2024 10:13 AM CDT Pulse 84 10/13/2024 10:13 AM CDT Temperature 37.1 C (98.7 F) 10/07/2024 3:21 PM CDT Respiratory Rate 13 04/27/2024 3:20 PM CDT Oxygen Saturation 97% 10/07/2024 3:21 PM CDT Inhaled Oxygen Concentration - - Weight 81.4 kg (179 lb 6.4 oz) 10/13/2024 10:13 AM CDT Height 160 cm (5' 3 ) 10/13/2024 10:13 AM CDT Body Mass Index 31.78 10/13/2024 10:13 AM CDT Plan of Treatment Health Maintenance Due [...] 07/19/2023 07/19/2022, 02/12, 06/21/2019, Additional history exists Dilated Eye Exam 11/27/2024 11/27/2022, 06/2020, 04/16/2019, Additional history exists Influenza Vaccine (Season Ended) 2025 08/15/2018, 08/15/2018, 04/21/2012, Additional history exists Hepatitis C Screening Completed 10/07/2017 HPV Vaccines Aged Out No longer eligi ble based on patient's age to complete this topic Procedures Procedure Name Priority Date/Time Associated Diagnosis Comments PULMONARY FUNCTION TEST (PFT) Routine 10/07/2024 3:15 PM CDT Cough, unspecified type DIABETIC EYE EXAM Routine 11/27/2022 POCT HEMOGLOBIN A1C Routine 07/19/2022 3 :02 PM CONSERVATION PLANNER Type 1 diabetes mellitus with hyperglycemia (HCC) LIPID PANEL Routine 03/19/2019 EGFR Routine 01/27/2018 1:46 PM CDT Hyperbilirubinemia HEPATITIS PANEL, ACUTE Routine 10/07/2017 10:29 AM CDT DIABETES FOOT EXAM Routine 10/02/2017 from Last 3 Months or Most Recently Relevant to Health Maintenance Results * Pulmonary Function Test - (10/07/2024 3:15 PM CDT) FVC PRE 2.99 L [facility] FVC %PRE PRED 75 % [facility] FEV1 PRE 2.61 L [facility] FEV1 %PRE PRED 77 % [facility] FEV1/FVC PRE 87.3 % [facility] Anatomical Region Laterality Modality PFT 10/07/2024 3:07 PM CDT Narrative 10/07/2024 4:16 PM CDT PFT performed at:->[facility] Adult PFT Lab- [facility] Procedure:->Spirometry Pulmonary Function Test Interpretation SPIROMETRY: There is a decrease in expiratory airflow at high lung volumes. The FEV1 to FVC ratio is normal. The FEV1 and FVC are reduced in a pattern suggestive of a restrictive abnormality. The inspiratory loop is appropriate for the expiratory flow abnormality. Impression: There is a mild restrictive ventilatory defect. However, measurement of lung volumes is suggested to confirm this if clinically indicated. Compared with most recent study, there has been no significant interval change. Shayne Daniel MD The attending pulmonary physician certifies that he has reviewed and interpreted the graphic and numerical data of this pulmonary function study and agrees with the written final report. Starting on July of [address] [facility] Pulmonary Function Laboratory utilizes race neutral GLI Global normative equations. Adiel Allen MD PFT ORDERABLES Final Result * (ABNORMAL) Diabetic Eye Exam (11/27/2022) Florecita Pierre MD HEALTH MAINTENANCE Final Result * (ABNORMAL) POCT hemoglobin A1c (07/19/2022 3:02 PM CONSERVATION PLANNER) Hemoglobin A1C, POC 11.1 Blood 07/19/2022 3:02 PM CONSERVATION PLANNER Glenn Juarez MD POINT OF CARE TEST ORDERABLES Final Result * Lipid panel (03/19/2019) Triglycerides 72 40 - 160 mg/dL Cholesterol 156 0 - 200 mg/dL HDL 48 35 - 70 mg/dL LDL Cholesterol 102 mg/dL Blood specimen (specimen) Glenn Juarez MD LAB BLOOD ORDERABLES Final [...] mL/min/1.73m2 *Relative to young adult level If -Rwandan multiply value by 1.16. Estimated glomerular filtration [...] PM CDT 01/27/2018 4:59 PM CDT Narrative [facility] ([facility]) - 01/27/2018 5:26 PM CDT Nick Joyce MD LAB BLOOD ORDERABLES F inal Result [facility] ([place]) 1 [facility] Department [place] [address] * Hepatitis panel, acute (10/07/2017 10:29 AM CDT) Hep A IgM Negative Negative [facility] ([facility]) Comment:Testing performed by : [facility], [address] [place] [address], [id number] Hep B core IgM Negative Negative [facility] ([facility]) Comment:Testing performed by : [facility], [address] [place] [address], [id number] Hep C Ab Negative Negative [facility] ([facility]) Comment:Testing performed by : [facility], [address] [place] [address], [address] HepBsAg Negative Negative [facility] ([facility]) Comment:Testing performed by : [facility], [address] [place] [address], [address] Blood specimen (specimen) 10/07/2017 10:29 AM CDT 10/07/2017 6:17 PM CDT Narrative [facility] ([facility]) - 10/07/2017 8:16 PM CDT Nick Joyce MD LAB MICROBIOLOGY - GEN ERAL ORDERABLES Final Result [facility] ([facility]) 1 [facility] Department [place] [address] * DIABETES FOOT EXAM (10/02/2017) Diabetic Foot Exam Unknown Historical Provider HEALTH MAINTENANCE Final Result from Last 3 Months or Most Recently Relevant to Health Maintenance [place] [address] [place] [address] CHOICE PLUS [facility] HMO/PPO Address: [address] [address] [place] [address] CHOICE PLUS [facility] HMO/PPO Address: [address] [address] [place] [address] [facility] [facility] HMO/PPO Address: [address] [address] [place] [address] Advance Directives For more information, please contact: [phone] * Full Code (Latest Code Status on File) Date Activated Date Inactivated Comments 10/07/2017 6:11 AM 10/07/2017 9:04 PM Care Teams Application Support Engineer Relationship Specialty Start Date End Date Matehw Gibbons MD PCP - General Family Practice 07/19/22 Chico Gil MD Consulting Physician Neurology 10/07/17
--- OUTSIDE RECORDS SUMMARY | 2024-10-29 10:04 | XMS_ITS | Referral Summary ---
Author Organization [facility] Medical Office Building B Address [address] [place] [address] Care Team Providers Care Curve Cleaner Name Role Phone Chico Gil MD Unavailable Mathew Gibbons MD Primary Care Provider [phone] Encounters Date Type Department Care Team Description 10/25/2024 3:00 PM CDT Therapy [facility] 11th [place] [address] [place] [address] Gabi Garland SLP Chronic cough (Primary Dx) 10/13/2024 10:20 AM CDT Therapy [facility] Otolaryngology [address] [facility] Medical Office Building [address] [place] [address] Marilu Rosario SLP Chronic cough 10/13/2024 10:20 AM CDT Office Visit [facility] ENT [address] [facility] Medical Office Building [address] [place] [address] Kaitlyn Smith MD Cough, unspecified type 10/07/2024 4:00 PM CDT Office Visit [facility] Pulmonary [address] [facility] Office Building [address] [place] [address] Adiel Allen MD Tracheobronchomalacia (Primary Dx); Tracheomegaly; Moderate persistent asthma without complication 10/07/2024 2:53 PM CDT - 10/07/2024 11:59 PM CDT Hospital Encounter [facility] PFT Lab [address] [facility] Medical Office Building [address] [place] [address] Cough, unspecified type Discharge Disposition: Discharge to home or self care 09/28/2024 Telephone [facility] Pulmonary [address] [facility] Advanced [facility] 8th [place] [address] [place] [address] Agata Ventura, ALLYSSA 09/23/2024 Telephone [facility] Pulmonary [address] [facility] 8th [place] [address] [place] [address] Agata Ventura, ALLYSSA 09/23/2024 Telephone [facility] Pulmonary [address] [facility] [address] [place] [address] Hawa Ulloa pa for budesonide-formoterol (Per cmm and express scripts no pa needed for budesonide symbicort palmer [id number]) from Last 3 Months Allergies No known [...] INSULIN ONE TIME EACH DAY 100 each 11/16/2 022 Active pen needle, diabetic (TRUEplus Pen Needle) 31 gauge x 11/26 needleIndication s:Type 1 diabetes mellitus with hyperglycemia (HCC) USE UP TO 5 PEN NEEDLES PER DAY FOR INSULIN PEN 400 each 4 Active escitalopram (LEXAPRO) 10 mg tablet Active hydrOXYzine (ATARAX) 50 mg tablet Active blood-glucose meter,continuous (Dexcom G6 Piece Jobber) misc Use to monitor glucose levels 1 each Active blood-glucose sensor (Dexcom G6 Sensor) device Use to monitor glucose levels, change sensor every 10 days 9 each Active blood-glucose transmitter (Dexcom G6 Transmitter) device Use to monitor glucose levels, change transmitter every 90 days 1 each Active insulin lispro (HumaLOG) 100 unit/mL vial for injection use as directed via pump- max 45 units /day 40 mL 3 Active atorvastatin (LIPITOR) 20 mg tablet Active losartan (COZAAR) 25 mg tablet Take 0.5 tablets (12.5 mg total) by mouth daily Active Symbicort 160-4.5 mcg/actuation inhaler Inhale 2 [...] 12/2018 Assessment & Plan (07/19/2022 3:15 PM STAVE HEWER): Diagnosed in 1998, at the age of [...] 04/21/2019 Assessment & Plan (09/03/2018 10:14 PM STAVE HEWER): Apply silvadene to ulcer. Apply twice daily [...] on file Legal Sex Male 12:38 PM STAVE HEWER Gender Identity Not on file Sexual Orientation [...] 10/13/2024 10:13 AM CDT Plan of Treatment Not on file Procedures Procedure Name Priority Date/Time Associated Diagnosis Comments PULMONARY FUNCTION TEST (PFT) Routine 10/07/2024 3:15 PM CDT Cough, unspecified type DIABETIC EYE EXAM Routine 11/27/2022 POCT HEMOGLOBIN A1C Routine 07/19/2022 3 :02 PM STAVE HEWER Type 1 diabetes mellitus with hyperglycemia (HCC) LIPID PANEL Routine 03/19/2019 EGFR Routine 01/27/2018 1:46 PM CDT Hyperbilirubinemia HEPATITIS PANEL, ACUTE Routine 10/07/2017 10:29 AM CDT HM DIABETES FOOT EXAM Routine 10/02/2017 from Last 3 Months or Most Recently Relevant to Health Maintenance Results * Pulmonary Function Test - (10/07/2024 3:15 PM CDT) [facility] FVC PRE 2.99 L [facility] FVC %PRE PRED 75 % [facility] FEV1 PRE 2.61 L [facility] FEV1 %PRE PRED 77 % [facility] FEV1/FVC PRE 87.3 % [facility] Anatomical Region Laterality Modality PFT 10/07/2024 3:07 PM CDT Narrative 10/07/2024 4:16 PM CDT PFT performed at:->[facility] Adult PFT Lab- [facility] Procedure:->Spirometry Pulmonary Function Test Interpretation SPIROMETRY: There [...] report. Starting on July of 2024 the [facility] Pulmonary Function Laboratory utilizes race neutral GLI Global normative equations. Adiel Allen MD PFT ORDERABLES Final Result * (ABNORMAL) Diabetic Eye Exam (11/27/2022) Floreciat Pierre MD HEALTH MAINTENANCE Final Result * (ABNORMAL) POCT hemoglobin A1c (07/19/2022 3:02 PM STAVE HEWER) Pathologist [facility] Hemoglobin A1C, POC 11.1 Blood 07/19/2022 3:02 PM STAVE HEWER us Glenn Juarez MD POINT OF CARE TEST ORDERABLES Final Result * Lipid panel (03/19/2019) Pathologist [facility] Triglycerides 72 40 - 160 mg/dL Cholesterol 156 0 - 200 mg/dL HDL 48 35 - 70 mg/dL LDL Cholesterol 102 mg/dL Blood specimen (specimen) Result Yamini Juarez MD LAB BLOOD ORDERABLES Final Res ult * eGFR (01/27/2018 1:46 PM CDT) Pathologist [facility] eGFR >60 mL/min/1.7 3 m2 [facility] ([facility]) Comment: Interpretive Data Reference Interval Normal >/= 90 mL/min/1.73m2 Mildly decreased* 60 - 89 mL/min/1.73m2 Mildly to moderately decreased 45 - 59 mL/min/1.73m2 Moderately to severely decreased 30 - 44 mL/min/1.73m2 Severely decreased 15 - 29 mL/min/1.73m2 Kidney Failure < 15 mL/min/1.73m2 *Relative to young adult level If -Trinidadian multiply value by 1.16. Estimated glomerular filtration [...] ORDERABLES F inal Result Performing Organization Address City/[facility]/ZIP Co de Phone Number [facility] ([place]) 1 [facility] Department [place] [address] * Hepatitis panel, acute (10/07/2017 10:29 AM CDT) Hep A IgM Negative Negative [facility] ([facility]) Comment:Testing performed by : [facility], [address] [place] [address], [id number] Hep B core IgM Negative Negative [facility] ([facility]) Comment:Testing performed by : [facility], [address] [place] [address], [address] Hep C Ab Negative Negative [facility] ([facility]) Comment:Testing performed by : [facility], [address] [place] [address], [address] HepBsAg Negative Negative [facility] ([facility]) Comment:Testing performed by : [facility], [address] [place] [address], [id number] Blood specimen (specimen) 10/07/2017 10:29 AM CDT 10/07/2017 6:17 PM CDT Narrative [facility] ([facility]) - 10/07/2017 8:16 PM CDT Nick Joyce MD LAB MICROBIOLOGY - GEN ERAL ORDERABLES Final Result Performing Organization Address City/[facility]/ZIP Co de Phone Number [facility] ([place]) 1 [facility] Department [place] [address] * DIABETES FOOT EXAM (10/02/2017) Diabetic Foot Exam Unknown Historical Provider HEALTH MAINTENANCE Final Result from Last 3 Months or Most Recently Relevant to Health Maintenance Insurance [address] [facility] H[facility]/PPO Address: [address] [place] [address] [facility] H[facility]/PPO Address: [address] [place] [address] [facility] H[facility]/PPO Address: [address] [place] [address] Advance Directives For more information, please contact: [phone] * Full Code (Latest Code Status on File) Date Activated Date Inactivated Comments 10/07/2017 6:11 AM 10/07/2017 9:04 PM Care Teams Curve Cleaner Relationship Specialty Start Date End Date Mathew Gibbons MD PCP - General Family Practice 07/19/22 Chico Gil MD Consulting Physician Neurology 10/07/17
--- OUTSIDE RECORDS SUMMARY | 2024-10-29 10:04 | XMS_ITS | Continuity of Care Document ---
Author Organization [facility] Address [address] [place] [address] [place] [address] Phone Care Team Providers Care Research & Insights Executive Name Role Phone Odin Wan MD Unavailable [...] Procedure Date Special Eye Evaluation Office/outpatient Visit, [facility] Advance Directives Directive Yes / No Effective Date File Name No Information Encounters Encounter Description Practice Location Reason(s) For Visit Diagnoses Date Provider Providers Copied on Encounter [facility] [address], [place], [place], [id number], [place] tel:[phone] [place] Professional evaluation (chief complaint) Optic cupping of both eyes [address] [facility] [address], [place], [place], [id number], [place]. tel:[phone] Specialist: Nasra Carbajal MD, [address] [place], [address]. tel:[phone] t: Dustin Rosas OD, [address], [place], [address]. tel:[phone] Provider: Marie Chavez MD, [address] [facility], [address], [place], [address]. tel:[phone] Family History Family Member Type Diagnosis Age At Onset No Information Payers Payer name Insurance type Covered alliance party ID Tomasa shen(s) [facility] CI [id number] Social History Type Description Quantity Date Captured [...] lens wearer. Patient states he goes to [place] for contacts and diabetic exam. Patient has [...] lens wearer. Patient states he goes to [place] for contacts and diabetic exam. Patient has [...]
--- OUTSIDE RECORDS SUMMARY | 2024-10-29 10:04 | XMS_ITS ---
Care Plan - [facility] Created on: October 29, 2024 REID ZHANNA Leblanc : 1995 Sex: Male Author Organization [facility] Address [address] [place] [address] Phone Care Team Providers Care Personal Property Appraiser Name Role Phone JENN MERINO, SALO Parrish APRN Primary Care Provider [phone]
[2024-10-29 11:05] LABS: Alanine Aminotransferase 72 U/L (6-50); Albumin Level 4.6 g/dL (3.5-5.1); Alkaline Phosphatase 84 U/L (38-126); Anion Gap 8 mmol/L (4-12); Aspartate Amino Transferase 41 U/L (17-59); Blood Urea Nitrogen 16 mg/dL (9-20); Calcium 9.3 mg/dL (8.4-10.2); Carbon Dioxide 30 mmol/L (22-30); Chloride 99 mmol/L (98-107); Cholesterol 136 mg/dL (0-200); Estimated Glomerular Filt Rate > 60; Glucose 156 mg/dL (65-110); HDL Direct 43 mg/dL; Potassium 4.2 mmol/L (3.4-5.0); Sodium 137 mmol/L (137-145); Triglycerides 53 mg/dL (<150)
[2024-10-29 11:22] LABS: LDL Cholesterol Direct 70 mg/dL
[2024-10-29 11:26] LABS: Free T4 Free Thyroxine 0.95 ng/dL (0.78-2.19); Vitamin D 25 Hydroxy 37.8 ng/mL
== END 2024-10-29 09:54 | disposition home or self-care (01) ==
LOC: ANHLAB 09:54
PROVIDERS: PCP Nurse Practitioner Adult Health; Visit Provider Internal Medicine
DX: E78.5 Hyperlipidemia, unspecified (principal); E10.9 Type 1 diabetes mellitus without complications; I10 Essential (primary) hypertension
CPT/HCPCS: 36415; 80053; 80061; 82306; 82607; 84439; 84443